=== PATIENT | female | born 1990 | race African-American/Black ===

== ENCOUNTER 2023-06-08 14:21 | Emergency (ER) | payer OTHER, SELFPAY ==
[2023-06-08 14:41] VITALS: BP 136/74; PULSE 91; RESP 16; TEMP 35.7; O2SAT 99
--- NOTE | 2023-06-08 15:26 | ED.URI ---
HPI - URI/Sore Throat General Chief Complaint: Upper Respiratory Infection Stated Complaint: chest congestion Time Seen by Provider: 06/08/23 15:18 Source: patient and RN notes reviewed Mode of arrival: ambulatory Limitations: no limitations History of Present Illness HPI Narrative: Patient presents today complaining of a 4 to five-day history of cough, chest congestion, fatigue. Denies any additional symptoms to include sore throat, nasal congestion, shortness of breath. Denies history of asthma or COPD. She has been drinking hot tea but taking no [id number] medication for symptoms prior to arrival. Son was recently diagnosed with strep throat. Related Data Allergies Allergy/AdvReac Type Severity Reaction Status Date / Time No Known Allergies Allergy Verified 06/08/23 14:59 Review of Systems Review of Systems: CONSTITUTIONAL: Denies body aches, fever, chills, or sweats.+ fatigue EYES: Denies visual changes, redness, or discharge. ENT: Denies rhinorrhea, congestion, sore throat, or otalgia. CARDIOVASCULAR: Denies chest pain, palpitations, or edema. RESPIRATORY: Denies dyspnea.+ cough, chest congestion GASTROINTESTINAL: Denies abdominal pain, nausea, vomiting, or diarrhea. GENITOURINARY: Denies dysuria or hematuria. SKIN: Denies rash, itching, or wounds. MUSCULOSKELETAL: Denies back pain, joint pain, or myalgia. NEUROLOGIC: Denies headache, numbness, tingling, or weakness. PSYCH: Denies depression or anxiety. PMFSH Comments At time of signature, I have reviewed and agree with nursing past medical, surgical, social and family history unless otherwise noted. Please see nursing chart for further information. There is no relevant family history pertinent to the presenting complaint Exam Narrative: GENERAL: Well-appearing, well-nourished, and in no acute distress. HEAD: Normocephalic, atraumatic. EYES: EOMI. No redness or drainage. Conjunctivae normal. ENT: Mucous membranes pink and moist. Nares clear. No rhinorrhea. TMs normal bilaterally. Throat normal. Uvula midline. NECK: Normal AROM. Supple. No lymphadenopathy. CHEST: No respiratory distress. Clear to auscultation. HEART: Regular rate and rhythm. No murmur appreciated. Normal peripheral pulses. EXTREMITIES: Normal range of motion. No edema. SKIN: Warm, dry, no rash. Capillary refill normal. Normal skin turgor. NEURO: No focal deficits. Alert and oriented x3. Gait steady. PSYCH: Normal affect. No signs of depression or anxiety. Course Course Level of Care: Express Care Visit Vital Signs Vital signs: Vital Signs Temperature 96.3 F L 06/08/23 14:41 Pulse Rate 91 06/08/23 14:41 Respiratory Rate 16 06/08/23 14:41 Blood Pressure 136/74 06/08/23 14:41 Pulse Oximetry 99 06/08/23 14:41 Oxygen Delivery Room Air 06/08/23 14:41 Temperature 96.3 F L 06/08/23 14:41 Pulse Rate 91 06/08/23 14:41 Respiratory Rate 16 06/08/23 14:41 Blood Pressure 136/74 06/08/23 14:41 Pulse Oximetry 99 06/08/23 14:41 Oxygen Delivery Room Air 06/08/23 14:41 Reviewed. Pt has been instructed to follow up with her PCP regarding her elevated blood pressure today. MDM - URI/Sore Throat MDM Narrative Medical decision making narrative: Rapid strep negative. Culture pending. Symptoms likely viral in etiology. Instructed patient to start Mucinex and stay hydrated. No prescription medications indicated at this time. Anticipatory guidance given. Differential Diagnosis Differential diagnosis: Likely upper respiratory infection, sinusitis, viral infection, bronchitis, pharyngitis and other (Strep throat) Lab Data Attestation: I reviewed the patient's lab results. Labs: Strep Screen Presumptive Negative *(Reference Range: Negative)* Critical Care Time Critical Care Time Critical Care Time: No Discharge Plan Discharge Clinical Impression: Upper respiratory inf
== END 2023-06-08 15:41 | disposition home or self-care (01) ==
PROVIDERS: Emergency Provider Nurse Practitioner; PCP Family Medicine Adolescent Medicine
DX: J06.9 Acute upper respiratory infection, unspecified (principal)
CPT/HCPCS: 87081; 87880; 99203; G0463

== ENCOUNTER 2023-08-01 09:11 | Outpatient (CLI) | payer BC, OTHER, SELFPAY ==
[2023-08-01 10:21] LABS: Basophils Absolute Auto 0.1 K/mm3 (0.0-0.1); Basophils Percent Auto 0.7 % (0.2-1.2); Eosinophils Absolute Auto 0.6 K/mm3 (0-0.3); Eosinophils Percent Auto 7.9 % (0-4.4); Hematocrit 39.4 % (37.0-47.0); Hemoglobin 12.8 g/dL (12.0-15.0); Immature Granulocyte Absolute 0.05 K/mm3 (0.00-0.031); Immature Granulocyte Percent A 0.7 % (0-0.5); Lymphocytes Absolute Auto 2.56 K/mm3 (0.9-3.2); Lymphocytes Percent Auto 36.7 % (18.3-44.2); Mean Corpuscular HGB Conc 32.5 g/dl (32-36); Mean Corpuscular Hemoglobin 28.1 pg (26-34); Mean Corpuscular Volume 86.4 fl (80-100); Mean Platelet Volume 11.9 fl (7.4-10.4); Monocytes Absolute Auto 0.4 K/mm3 (0.1-0.6); Monocytes Percent Auto 5.3 % (2.6-8.5); Neutrophils Absolute Auto 3.4 K/mm3 (1.3-6.7); Neutrophils Percent Auto 48.7 % (45.5-73.1); Platelet Count Result 270 k/mm3 (150-375); Red Blood Count 4.56 M/mm3 (4.2-5.4); Red Cell Distribution Width 13.1 % (11.5-14.5)
[2023-08-01 10:35] LABS: Alanine Aminotransferase 18 U/L (6-35); Albumin Level 4.8 g/dL (3.5-5.1); Alkaline Phosphatase 55 U/L (38-126); Anion Gap 8 mmol/L (8-16); Aspartate Amino Transferase 25 U/L (14-36); Bilirubin,Total 0.6 mg/dL (0.2-1.3); Blood Urea Nitrogen 9 mg/dL (7-17); Calcium 9.5 mg/dL (8.4-10.2); Carbon Dioxide 28 mmol/L (22-30); Chloride 102 mmol/L (98-107); Cholesterol 207 mg/dL (0-200); Estimated Glomerular Filt Rate > 60; Glucose 90 mg/dL (65-110); HDL Direct 44 mg/dL; Potassium 4.4 mmol/L (3.4-5.0); Sodium 138 mmol/L (137-145); Triglycerides 91 mg/dL (<150)
[2023-08-01 10:48] LABS: LDL Cholesterol Direct 123 mg/dL
[2023-08-01 10:59] LABS: Hemoglobin A1C 5.1 % (<5.7)
== END 2023-08-01 09:12 | disposition home or self-care (01) ==
PROVIDERS: PCP Nurse Practitioner Family; Visit Provider Nurse Practitioner Family
DX: E66.01 Morbid (severe) obesity due to excess calories (principal); Z13.0 Encounter for screening for diseases of the blood and blood-forming organs and certain disorders involving the immune mechanism; Z13.228 Encounter for screening for other metabolic disorders; Z13.220 Encounter for screening for lipoid disorders
CPT/HCPCS: 36415; 80053; 80061; 83036; 85025

== ENCOUNTER 2025-04-22 18:24 | Emergency (ER) | payer OTHER, BC, SELFPAY ==
--- OUTSIDE RECORDS SUMMARY | 2025-04-22 18:25 | XMS_ITS | Encounter Summary ---
Author Organization [facility] Facility Care Team Providers Care Bistro Server Name Role Phone Mansi Perez Primary Care Provider [phone] Encounter Details Date Type Department Care Team (Latest Contact Info) Description 11/06/2018 Orders Only [facility] CLINCONV ProviderRigo MD [address] [place] [address] Social History Tobacco Use Types Packs/Day Years Used Date Smoking Tobacco: Never Assessed Comments Unknown Sex and Gender Information Value Date Recorded Sex Assigned at Not on file Legal Sex Female 10:35 PM CROP PEST CONTROL SPECIALIST Gender Identity Not on file Sexual Orientation Not on file documented as of this encounter Plan of Treatment Not on file documented as of this encounter Procedures Procedure Name Priority Date/Time Associated Diagnosis Comments SCAN - LABS 11/06/2018 12:00 AM CROP PEST CONTROL SPECIALIST documented in this encounter Results * SCAN - LABS (11/06/2018 12:00 AM CROP PEST CONTROL SPECIALIST) Narrative 11/06/2018 12:00 AM CROP PEST CONTROL SPECIALIST Ordered by an unspecified provider. Historical Provider Final Res ult documented in this encounter Visit Diagnoses Not on filedocumented in this encounter Additional Health Concerns Infection Onset Date Last Indicated Resolved Time MRSA Comment:MRSA Isolation Fdc 01/27/25 09/12/2024 09/12/2024 01/27/2025 6:[address] documented as of this encounter Care Teams Bistro Server Relationship Specialty Start Date End Date Mansi Perez PA [address] [place] [address] PCP - General Internal Medicine 05/22/19 documented as of this encounter
--- OUTSIDE RECORDS SUMMARY | 2025-04-22 18:25 | XMS_ITS | Referral Summary ---
Author Organization [facility] Medical Office Building [facility] Address [address] [place] [address] Care Team Providers Care General Medical Practitioner Name Role Phone Mansi Perez Primary Care Provider [phone]- [phone] Allergies No known active allergies Medications No known medications Active Problems Problem Noted Date Diagnosed Date Annual physical exam 11/22/2019 Assessment & Plan (11/22/2019 10:02 PM COMPRESSED GAS PLANT WORKER): Encouraged healthy lifestyle, good nutrition and exercise. Encouraged Calcium and Vitamin D and weight bearing exercise for bone health. Reviewed immunizations Reviewed age appropirate screenings. Calculus of gallbladder with out cholecystitis without obstruction 11/11/2019 Assessment & Plan (11/22/2019 10:01 PM COMPRESSED GAS PLANT WORKER): This is a significant, separately identifiable problem that was evaluated and managed on the same day as the wellness exam Reviewed GB diet. Refer to Surgeon for further evaluation/discuss cholecystectomy. Morbid obesity with BMI of 50.0-59.9, adult 06/25 Assessment & Plan (11/11/2019 8:50 AM COMPRESSED GAS PLANT WORKER): Obesity is unchanged. Discussed the patient's BMI. The BMI is above average. BMI management plan is completed. BMI Follow-up includes: nutrition counseling, exercise counseling and education provided. Assessment & Plan (07/08/2019 8:51 AM CDT): Obesity is unchanged. Discussed the patient's BMI. The BMI is above average. BMI management plan is completed. BMI Follow-up includes: nutrition counseling, exercise counseling and education provided. Discussed weight management issues for approximately 15 minutes. Encouraged to log all food/drink/intake to determine daily caloric intake. Reviewed 3500 calories = 1# of weight so have to register a deficit to lose. Discussed obtaining this by decreasing daily caloric intake and or increasing exercise. Discussed decreasing carbs. Maintaining enough protein. Monitor/be aware of serving size. Increase water. Avoid sugar sweetened drinks. Other hemorrhoids 07/03/2019 Anxiety 07/03/2019 Assessment & Plan (11/22/2019 10:01 PM COMPRESSED GAS PLANT WORKER): Stable without medication Assessment & Plan (07/18/2019 11:57 PM CDT): Anxiety is much better controlled. She thinks some of it is related to her job change. Will remain off the Lexapro and continue to monitor. If her symptoms return she may call to restart. History of gonorrhea 07/03/2019 Overview (07/03/2019): [address] 07/03/2019 Overview (11/22/2019): Placed by Ana 01/2019--->01/2022 Assessment & Plan (11/22/2019 10:01 PM COMPRESSED GAS PLANT WORKER): Tolerating well Assessment & Plan (07/03/2019 5:25 PM CDT): Placed 02/16/2019 by JENNIFFER Perez Resolved Problems Problem Noted Date Diagnosed Date Resolved Date Cervical cancer screening 11/22/2019 Assessment & Plan (11/22/2019 10:02 PM COMPRESSED GAS PLANT WORKER): Pap obtained today Other fatigue 07/18/2019 11/22/2019 Assessment & Plan (07/18/2019 11:58 PM CDT): Probably multifactorial. Check labs and followup to re-evaluate Screening examination for ST D (sexually transmitted disease) 07/18/2019 11/08/2020 Assessment & Plan (11/22/2019 10:02 PM COMPRESSED GAS PLANT WORKER): Check Braden/Chla and Trich from pap Assessment & Plan (07/18/2019 11:58 PM CDT): Check labs/urine for STD screen Diabetes mellitus screening 07/18/2019 11/22/2019 Assessment & Plan (07/18/2019 11:57 PM CDT): Check labs Immunizations Immunization Administration Dates Next Due Influenza, Trivalent, IM (MDV) 10/09/2018 Influenza, Unspecified 09/23/2019 Rho (D) Immune Globulin 12/07/2015 Tdap 09/20/2015,08/25/2015 Social History Tobacco Use Types Packs/Day Years Used Date Smoking Tobacco: Never Smokeless Tobacco: Never Alcohol Use Standard Drinks/Week Comments Yes 0 (1 standard drink = 0.6 oz pur e alcohol) PHQ-2 Answer Date Recorded PHQ-2 Score 0 07/16/2019 Personal Safety Answer Date Recorded Have you ever been in or are you currently in a harmful physical or emotional relationship or is someone making you feel afraid or unsafe? 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 file Not on file Last Filed Vital Signs Vital Sign Reading Time Taken Comments Blood Pressure 136/63 09/12/2024 4:30 PM CDT Pulse 78 09/12/2024 4:30 PM CDT Temperature 36.7 C (98.1 F) 09/12/2024 11:05 AM CDT Respiratory Rate 20 09/12/2024 11:05 AM CDT Oxygen Saturation 100% 09/12/2024 4:30 PM CDT Inhaled Oxygen Concentration - - Weight 149.7 kg (330 lb) 09/12/2024 11:05 AM CDT Height 162.6 cm (5' 4) 09/12/2024 11:05 AM CDT Body Mass Index 56.64 09/12/2024 11:05 AM CDT Plan of Treatment Not on file Procedures Procedure Name Priority Date/Time Associated Diagnosis Comments HM PAP SMEAR WITH HPV Routine 11/11/2019 HEPATITIS PANEL, ACUTE Routine 07/14/2019 1:11 PM CDT Screening examination for STD (sexually transmitted disease) from Last 3 Months or Most Recently Relevant to Health Maintenance Results * PAP SMEAR WITH HPV (11/11/2019) Pap smear Normal Comment:Negative Pap and Neg ative HPV us Historical Provider MD HEALTH MAINTENANCE Final Result * Hepatitis panel, acute (07/14/2019 1:11 PM CDT) HepBsAg NONREACT NONREACTIVE [facility] Comment: Siemens CentaurXP using EMMY (chemiluminescent immunoassay) technology. NONREACTIVE: IgM antibodies to Hepatitis B Surface antigen not detected. REACTIVE: IgM antibodies to Hepatitis B Surface antigen detected. Reactive results will be confirmed by neutralization testing. HBsAb qn 33.60 mIU/mL [facility] Comment: Siemens CentaurXP using EMMY (chemiluminescent immunoassay) technology. 9.99 IU/L or less.....NONREACTIVE: IgM antibodies to Hepatitis B Surface antibody are not detected. 10.00 IU/L or greater..REACTIVE: IgM antibodies to Hepatitis B Surface antibody are detected. Hep B core IgM NONREACT NONREACTIVE [facility] Comment: Siemens CentaurXP using EMMY (chemiluminescent immunoassay) technology. NONREACTIVE: IgM antibodies to Hepatitis B Core antigen not detected. EQUIVOCAL: IgM antibodies to Hepatitis B Core antigen may or may not be present. Obtain a new specimen and retest. REACTIVE: IgM antibodies to Hepatitis B Core antigen detected. Hep A IgM NONREACT NONREACTIVE [facility] Comment: Siemens CentaurXP using EMMY (chemiluminescent immunoassay) technology. NONREACTIVE: IgM antibodies to Hepatitis A not detected. This does not exclude possibility of exposure to Hepatitis A or early acute infection. EQUIVOCAL:IgM antibodies to Hepatitis A may or may not be present. Suggest recollection and retest. REACTIVE: Antibodies to Hepatitis A detected. Hep C Ab NONREACT NONREACTIVE [facility] Comment: Siemens CentaurXP using EMMY (chemiluminescent immunoassay) technology. NONREACTIVE: Antibodies to Hepatitis C not detected. This does not exclude early acute Hepatitis C infection, possibility of exposure to Hepatitis C, antibodies below detection limit, or to lack of antibody reactivity to the antigen used in this assay. EQUIVOCAL: Antibodies to Hepatitis C may or may not be present. Sample to be confirmed by real-time PCR method. REACTIVE: Antibodies to Hepatitis C detected.Sample to be confirmed by real-time PCR method. Blood specimen (specimen) 07/14/2019 1:11 PM CDT 07/14/2019 1:16 PM CDT Narrative Resulting Agency Comment CLI Mansi [facility] - GENERAL ORDERABLES Final Result [id number] [place] [address], [facility] [phone] from Last 3 Months or Most Recently Relevant to Health Maintenance Insurance [employer] [facility] Address: [address] [address] Care Teams General Medical Practitioner Relationship Specialty Start Date End Date Mansi Perez PA [address] [place] [address] PCP - General Internal Medicine 05/22/19
--- OUTSIDE RECORDS SUMMARY | 2025-04-22 18:25 | XMS_ITS | Encounter Summary ---
Author Organization [facility] Facility Care Team Providers Care Continuous Improvement Engineer Name Role Phone Mansi Perez Primary Care Provider +1- [phone] Encounter Details Date Type Department Care Team (Latest Contact Info) Description 02/16/2019 Orders Only [facility] CLINCONV ProviderRigo MD [address] [place] [address] Social History Tobacco Use Types Packs/Day Years Used Date Smoking Tobacco: Never Assessed Comments Unknown Sex and Gender Information Value Date Recorded Sex Assigned at Not on file Legal Sex Female 10:35 PM AUTO TECHNICIAN MECHANIC Gender Identity Not on file Sexual Orientation Not on file documented as of this encounter Plan of Treatment Not on file documented as of this encounter Procedures Procedure Name Priority Date/Time Associated Diagnosis Comments PROCEDURE - RESULT 02/16/2019 12 :00 AM CDT documented in this encounter Results * PROCEDURE - RESULT (02/16/2019 12:00 AM CDT) Narrative 02/16/2019 12:00 AM CDT Ordered by an unspecified provider. Historical Provider Final Res ult documented in this encounter Visit Diagnoses Not on filedocumented in this encounter Additional Health Concerns Infection Onset Date Last Indicated Resolved Time MRSA Comment:MRSA Isolation Long Term 01/27/25 09/12/2024 09/12/2024 01/27/2025 6:[address] documented as of this encounter Care Teams Continuous Improvement Engineer Relationship Specialty Start Date End Date Mansi Perez PA [address] [place] [address] PCP - General Internal Medicine 05/22/19 documented as of this encounter
--- OUTSIDE RECORDS SUMMARY | 2025-04-22 18:25 | XMS_ITS | Clinical Summary ---
Author Organization [facility] Medical Office Building B Address [address] [place] [address] Care Team Providers Care Assistant To The Director Name Role Phone Mansi Perez Primary Care Provider +1- [phone] Allergies No known active allergies Medications No known medications Active Problems Problem Noted Date Diagnosed Date Annual physical exam 11/22/2019 Assessment & Plan (11/22/2019 10:02 PM CONSERVATION BIOLOGY PROFESSOR): Encouraged healthy lifestyle, good nutrition and exercise. Encouraged Calcium and Vitamin D and weight bearing exercise for bone health. Reviewed immunizations Reviewed age appropirate screenings. Calculus of gallbladder with out cholecystitis without obstruction 11/11/2019 Assessment & Plan (11/22/2019 10:01 PM CONSERVATION BIOLOGY PROFESSOR): This is a significant, separately identifiable problem that was evaluated and managed on the same day as the wellness exam Reviewed GB diet. Refer to Surgeon for further evaluation/discuss cholecystectomy. Morbid obesity with BMI of 50.0-59.9, adult 06/25 Assessment & Plan (11/11/2019 8:50 AM CONSERVATION BIOLOGY PROFESSOR): Obesity is unchanged. Discussed the patient's BMI. [...] 07/03/2019 Assessment & Plan (11/22/2019 10:01 PM CONSERVATION BIOLOGY PROFESSOR): Stable without medication Assessment & Plan (07/18/2019 [...] 01/2019--->01/2022 Assessment & Plan (11/22/2019 10:01 PM CONSERVATION BIOLOGY PROFESSOR): Tolerating well Assessment & Plan (07/03/2019 5:25 PM CDT): Placed 02/16/2019 by JENNIFFER Perez Resolved Problems Problem Noted Date Diagnosed Date Resolved Date Cervical cancer screening 11/22/2019 Assessment & Plan (11/22/2019 10:02 PM CONSERVATION BIOLOGY PROFESSOR): Pap obtained today Other fatigue 07/18/2019 11/22/2019 Assessment & Plan (07/18/2019 11:58 PM CDT): Probably multifactorial. Check labs and followup to re-evaluate Screening examination for ST D (sexually transmitted disease) 07/18/2019 11/08/2020 Assessment & Plan (11/22/2019 10:02 PM CONSERVATION BIOLOGY PROFESSOR): Check Braden/Chla and Trich from pap Assessment & Plan (07/18/2019 11:58 PM CDT): Check labs/urine for STD screen Diabetes mellitus screening 07/18/2019 11/22/2019 Assessment & Plan (07/18/2019 11:57 PM CDT): Check labs Immunizations Immunization Administration Dates Next Due Influenza, Trivalent, IM (MDV) 10/09/2018 Influenza, Unspecified 09/23/2019 Rho (D) Immune Globulin 12/07/2015 Tdap 09/20/2015,08/25/2015 Surgical History Surgery Date Site/Laterality Comments SECTION Family History Medical History Relation Name Comments Alcohol abuse Father Anxiety disorder Mother Asthma Mother Depression Mother Relation Name Status Comments Father Mother Social History Tobacco Use Types Packs/Day Years [...] on file Legal Sex Female 10:35 PM CONSERVATION BIOLOGY PROFESSOR Gender Identity Not on file Sexual Orientation Not on file 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 file Not on file Obstetrics History Last Filed Vital Signs Vital Sign Reading [...] 09/12/2024 11:05 AM CDT Plan of Treatment Health Maintenance Due Date Last Done Comments Varicella Vaccines (1 of 2 - 13+ 2-dose series) 2004 Depression Screening 07/08/2020 07/08/2019 Cervical Cancer Screening 11/11/2020 11/11/2019 Regular Well Visit/Exam 18-64 11/11/2020 11/11/2019, 09/02/2018 Influenza Vaccine (Season Ended) 2025 09/23/2019, 10/09/2018 DTaP/Tdap/Td Vaccine (3 - Td or Tdap) 09/20/2025 09/20/2015, 08/25/2015, 05/03/2014, Additional history exists HPV Vaccines Completed 10/12/2014, 05/25, 04/04/2012 Hepatitis C Screening Completed 07/14/2019 , 02/06/2019, 11/11/2018, Additional history exists Hepatitis B Screening Completed 08/02/2022, 002 Pneumococcal vaccine <65 Aged Out No longer eligible based on patient's age to complete this topic Procedures Procedure Name Priority Date/Time Associated Diagnosis Comments PAP SMEAR WITH HPV Routine 11/11/2019 HEPATITIS PANEL, ACUTE Routine 07/14/2019 1:11 PM CDT Screening examination for STD (sexually transmitted disease) from Last 3 Months or Most Recently Relevant to Health Maintenance Results * PAP SMEAR WITH HPV (11/11/2019) Pap smear Normal Comment:Negative Pap and Neg ative HPV Historical Provider HEALTH MAINTENANCE Final Result * Hepatitis panel, acute (07/14/2019 1:11 PM CDT) HepBsAg NONREACT NONREACTIVE [facility] Comment: Siemens Ineda SystemsaurXP using EMMY (chemiluminescent immunoassay) technology. NONREACTIVE: IgM antibodies to Hepatitis B Surface antigen not detected. REACTIVE: IgM antibodies to Hepatitis B Surface antigen detected. Reactive results will be confirmed by neutralization testing. HBsAb qn 33.60 mIU/mL [facility] Comment: Siemens CentaurXP using EMMY (chemiluminescent immunoassay) technology. 9.99 IU/L or less.....NONREACTIVE: IgM antibodies to Hepatitis B Surface antibody are not detected. 10.00 IU/L or greater..REACTIVE: IgM antibodies to Hepatitis B Surface antibody are detected. Hep B core IgM NONREACT NONREACTIVE [facility] Comment: Siemens CentaurXP using EMMY (chemiluminescent immunoassay) technology. NONREACTIVE: IgM antibodies to Hepatitis B Core antigen not detected. EQUIVOCAL: IgM antibodies to Hepatitis B Core antigen may or may not be present. Obtain a new specimen and retest. REACTIVE: IgM antibodies to Hepatitis B Core antigen detected. Hep A IgM NONREACT NONREACTIVE [facility] Comment: Siemens CentaurXP using EMMY (chemiluminescent immunoassay) technology. NONREACTIVE: IgM antibodies to Hepatitis A not detected. This does not exclude possibility of exposure to Hepatitis A or early acute infection. EQUIVOCAL:IgM antibodies to Hepatitis A may or may not be present. Suggest recollection and retest. REACTIVE: Antibodies to Hepatitis A detected. Hep C Ab NONREACT NONREACTIVE [facility] Comment: Siemens CentaurXP using EMMY [...] PM CDT Narrative Resulting Agency Comment CLI us Mansi MILLER [facility] MICROBIOLOGY - GENERAL ORDERABLES Final Result [facility] [address] [place] [address], [facility] [phone] from Last 3 Months or Most Recently Relevant to Health Maintenance Insurance IDPA IDPA [facility] Care Teams Assistant To The Director Relationship Specialty Start Date End Date Mansi Perez PA [address] [place] [address] PCP - General Internal Medicine 05/22/19
--- OUTSIDE RECORDS SUMMARY | 2025-04-22 18:25 | XMS_ITS | Clinical Summary ---
Author Organization [facility] Address [address] [place] [address] Care Team Providers Care Bill Of Materials Clerk Name Role Phone Unavailable Primary Care Provider Unavailabl e Source Comments [facility],non-owned Affiliates and Associated Physician Practices is amultiple site organization consisting of ambulatory clinics and hospital sitesin [place], [place], [place] and [place]. This disclosure is being madepursuant to the Care Everywhere program and may not contain all information available regarding this patient. Last updated 18.[facility] Allergies No known active allergies Medications * Be aware that medications may not be up to date on this document. Alwaysverify current medications with the patient. Vit-Fe Fumarate-FA ( VITAMIN) 28-0.8 MG tablet Take 1 Tab by mouth once daily Active oxyCODONE-aceta minophen (PERCOCET) 5-325 MG tablet Take 1-2 Tabs by mouth every 4 hours as needed 40 Tab 0 6 Active docusate sodium (COLACE) 100 MG capsule Take 1 Cap by mouth 2 times daily 60 Cap 0 6 Active ferrous sulfate 325 (65 FE) MG tablet Take 1 Tab by mouth daily with breakfast 60 Tab 0 6 Active Active Problems Problem Noted Date Diagnosed Date Obesity, Class III, BMI 40-49.9 (morbid obesity) 12/05/2015 Rh negative status during 12/05/2015 Overview (12/05/2015): Rhogam given 09/08 Susceptible to varicella (non-immune), currently 12/05/2015 Anemia 12/05/2015 Overview (12/05/2015): During pregnency, did not take iron supplement. Did take vitamin. 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 NIPT performed and was low risk. Depression 12/05/2015 Overview (12/05/2015): H/O depression for long time as child. Took rx meds as a kid. Mood stable throughout and not on meds currently. Counseled about post- depression risk during care, prefers to observe for now and not start meds as mood stable. History of asthma 12/05/2015 Overview (12/05/2015): Currently asymptomatic, not on meds. Pre-diabetes 12/23/2014 Overview (12/05/2015): Noted in history. GCT 98 during History of trichomoniasis 01/10/2014 Overview (12/05/2015): Noted with pap in 2013. Also noted in 2011. No trich in . care following delivery S/P RhD negative Resolved Problems Problem Noted Date Diagnosed Date Resolved Date E. coli UTI 06/02/2015 12/19/2015 Overview (12/05/2015): E. Coli culture, started on Macrobid and switched to ampicillin per sensitivities. Immunizations Immunization Administration Dates Next Due Rho D Immune Globulin 12/07/2015 TDAP (7yrs+) 09/20/2015 Social History Tobacco Use Types Packs/Day Years Used Date Smoking Tobacco: Never Smokeless Tobacco: Never Alcohol Use Standard Drinks/Week Comments No 0 (1 standard drink = 0.6 oz pur e alcohol) Comments No Sex and Gender Information Value Date Recorded Sex Assigned at Not on file Legal Sex Female 5:35 AM ELECTRICAL ENGINEER Gender Identity Not on file Sexual Orientation Not on file Last Filed Vital Signs Vital Sign Reading Time Taken Comments Blood Pressure 143/69 03/14/2016 6:10 PM CDT Pulse 84 03/14/2016 6:10 PM CDT Temperature 36.4 C (97.6 F) 03/14/2016 6:31 PM CDT Respiratory Rate 29 03/14/2016 6:10 PM CDT Oxygen Saturation 99% 03/14/2016 6:10 PM CDT Inhaled Oxygen Concentration - - Weight 122.5 kg (270 lb) 03/14/2016 6:31 PM CDT Height 162.6 cm (5' 4) 03/14/2016 6:31 PM CDT Body Mass Index 46.35 03/14/2016 6:31 PM CDT Plan of Treatment Health Maintenance Due Date Last Done Comments PAP SMEAR 1991 HEPATITIS B VACCINE (1 of 3 - 19+ 3-dose series) 2010 COVID-19 VACCINE ( season) 2024 10/21/2023, 01/30/2021 DEPRESSION SCREENING 11/25/2024 INFLUENZA VACCINE (Season Ended) 2025 11/01/2021, 09/23/2019 DTAP/TDAP/TD VACCINES (2 - Td or Tdap) 09/20/2025 09/20/2015 ZOSTER VACCINE (1 of 2) 2041 HEPATITIS C SCREENING Completed 10/12/2014 HIV SCREENING Completed 05/12/2015, 11/26, 10/12/2014, Additional history exists HIB VACCINE Aged Out No longer eligi ble based on patient's age to complete this topic HPV VACCINE Aged Out No longer eligi ble based on patient's age to complete this topic MENINGOCOCCAL (Group B) VACCINE SHARED DECISION-MAKING Aged Out No longer eligible based on patient's age to complete this topic MENINGOCOCCAL GROUPS A/C/Y/W VACCINE Aged Out No longer eligible based on patient's age to complete this topic PNEUMOCOCCAL VACCINE Aged Out No long er eligible based on patient's age to complete this topic Procedures Procedure Name Priority Date/Time Associated Diagnosis Comments HIV-1 HIV-2 ANTIGEN/ANTIBODY Routine 05/12/2015 3:54 PM CDT HEPATITIS C ANTIBODY Routine 10/12/2014 1:29 PM ELECTRICAL ENGINEER from Last 3 Months or Most Recently Relevant to Health Maintenance Results * HIV-1 HIV-2 ANTIGEN/ANTIBODY (05/12/2015 3:54 PM CDT) HIV Antigen/Antibody 4th Generation NON-REACT HELADIO NON-REACT HELADIO [facility] ([facility]) Comment: A Nonreactive HIV Ag/Ab result does not exclude HIV infection since the time frame for seroconversion is variable. If acute HIV infection is suspected, a HIV-1 RNA Qualitative TMA test is recommended. PLEASE NOTE: This information has been disclosed to you from records whose confidentiality may be protected by state law. If your state requires such protection, then the state law prohibits you from making any further disclosure of the information without the specific written consent of the person to whom it pertains, or as otherwise permitted by law. A general authorization for the release of medical or other information is NOT sufficient for this purpose. The performance of this assay has not been clinically validated in patients less than 2 years old. For additional information please refer to http://education.Cherrish/faq/JSA172 (This link is being provided for informational/ educational purposes only.) Test Performed at: [facility] [id number] BEENA PRIETO DO,MPH 05/12/2015 3:54 PM CDT 05/12/2015 3:55 PM CDT us Historical Provider LAB - HEMATOLOGY ORDERABL ES Edited Result - Final [facility] ([facility]) [id number] * HEPATITIS C ANTIBODY (10/12/2014 1:29 PM ELECTRICAL ENGINEER) Hepatitis C Antibody NON-REACTI VE NON-REACT HEL[facility] ([facility]) Signal/Cutoff 0.08 <1.00 [facility] ([facility]) Comment: Test Performed at: [facility] [id number] [employer] [place] [id number] BEENA PRIETO DO,MPH Blood specimen (specimen) BLOOD SPECIMEN / Unknown 10/12/2014 1:29 PM ELECTRICAL ENGINEER 10/12/2014 1:30 PM ELECTRICAL ENGINEER us Nat Arana MD LAB - CHEMISTRY ORDERABLES Edited Result - Final [facility] W) [id number] from Last 3 Months or Most Recently Relevant to Health Maintenance Advance Directives * Full Code (Latest Code Status on File) Date Activated Date Inactivated Comments 12/06/2015 1:00 AM 12/08/2015 3:37 PM * Full Code Date Activated Date Inactivated Comments 12/05/2015 8:18 PM 12/06/2015 1:00 AM
[2025-04-22 18:32] VITALS: BP 144/94; PULSE 77; RESP 20; TEMP 35.7; O2SAT 100
[2025-04-22 20:30] VITALS: BP 116/68; PULSE 72; RESP 16; TEMP 37.1; O2SAT 100
--- OUTSIDE RECORDS SUMMARY | 2025-04-22 22:10 | XMS_ITS | Clinical Summary ---
Author Organization [facility] Medical Office Building B Address [address] [place] [address] Care Team Providers Care Reefer Truck Driver Name Role Phone Mansi Perez Primary Care Provider +1- [phone] Allergies No known active allergies Medications No known medications Active Problems Problem Noted Date Diagnosed Date Annual physical exam 11/22/2019 Assessment & Plan (11/22/2019 10:02 PM BLACKSMITH SUPERVISOR): Encouraged healthy lifestyle, good nutrition and exercise. Encouraged Calcium and Vitamin D and weight bearing exercise for bone health. Reviewed immunizations Reviewed age appropirate screenings. Calculus of gallbladder with out cholecystitis without obstruction 11/11/2019 Assessment & Plan (11/22/2019 10:01 PM BLACKSMITH SUPERVISOR): This is a significant, separately identifiable problem that was evaluated and managed on the same day as the wellness exam Reviewed GB diet. Refer to Surgeon for further evaluation/discuss cholecystectomy. Morbid obesity with BMI of 50.0-59.9, adult 06/25 Assessment & Plan (11/11/2019 8:50 AM BLACKSMITH SUPERVISOR): Obesity is unchanged. Discussed the patient's BMI. [...] 07/03/2019 Assessment & Plan (11/22/2019 10:01 PM BLACKSMITH SUPERVISOR): Stable without medication Assessment & Plan (07/18/2019 [...] 01/2019--->01/2022 Assessment & Plan (11/22/2019 10:01 PM BLACKSMITH SUPERVISOR): Tolerating well Assessment & Plan (07/03/2019 5:25 PM CDT): Placed 02/16/2019 by JENNIFFER Perez Resolved Problems Problem Noted Date Diagnosed Date Resolved Date Cervical cancer screening 11/22/2019 Assessment & Plan (11/22/2019 10:02 PM BLACKSMITH SUPERVISOR): Pap obtained today Other fatigue 07/18/2019 11/22/2019 Assessment & Plan (07/18/2019 11:58 PM CDT): Probably multifactorial. Check labs and followup to re-evaluate Screening examination for ST D (sexually transmitted disease) 07/18/2019 11/08/2020 Assessment & Plan (11/22/2019 10:02 PM BLACKSMITH SUPERVISOR): Check Braden/Chla and Trich from pap Assessment [...] on file Legal Sex Female 10:35 PM BLACKSMITH SUPERVISOR Gender Identity Not on file Sexual Orientation [...] (07/14/2019 1:11 PM CDT) HepBsAg NONREACT NONREACTIVE [facility] Comment: Siemens [employer]ster TVaurXP using EMMY (chemiluminescent immunoassay) technology. NONREACTIVE: IgM antibodies to Hepatitis B Surface antigen not detected. REACTIVE: IgM antibodies to Hepatitis B Surface antigen detected. Reactive results will be confirmed by neutralization testing. HBsAb qn 33.60 mIU/mL [facility] Comment: Siemens CentaurXP using EMMY (chemiluminescent immunoassay) technology. 9.99 IU/L or less.....NONREACTIVE: IgM antibodies to Hepatitis B Surface antibody are not detected. 10.00 IU/L or greater..REACTIVE: IgM antibodies to Hepatitis B Surface antibody are detected. Hep B core IgM NONREACT NONREACTIVE [facility] Comment: Siemens CentaurXP using EMMY (chemiluminescent immunoassay) technology. NONREACTIVE: IgM antibodies to Hepatitis B Core antigen not detected. EQUIVOCAL: IgM antibodies to Hepatitis B Core antigen may or may not be present. Obtain a new specimen and retest. REACTIVE: IgM antibodies to Hepatitis B Core antigen detected. Hep A IgM NONREACT NONREACTIVE [facility] Comment: Siemens CentaurXP using EMMY (chemiluminescent immunoassay) technology. NONREACTIVE: IgM antibodies to Hepatitis A not detected. This does not exclude possibility of exposure to Hepatitis A or early acute infection. EQUIVOCAL:IgM antibodies to Hepatitis A may or may not be present. Suggest recollection and retest. REACTIVE: Antibodies to Hepatitis A detected. Hep C Ab NONREACT NONREACTIVE [facility] Comment: Siemens CentaurXP using EMMY (chemiluminescent immunoassay) [...] LAB MICROBIOLOGY - GENERAL ORDERABLES Final Result [facility] [address] [place] [address], [facility] [phone] from Last 3 Months or Most Recently Relevant to Health Maintenance Insurance IDPA IDPA [facility] HMO/PPO Address: [address] [address] [place] [address] Care Teams Reefer Truck Driver Relationship Specialty Start Date End Date Mansi Perez PA [address] [place] [address] PCP - General Internal Medicine 05/22/19
--- OUTSIDE RECORDS SUMMARY | 2025-04-22 22:10 | XMS_ITS | Encounter Summary ---
Author Organization [facility] Care Team Providers Care Arc Cutter Plasma Arc Name Role Phone Mansi Perez Primary Care Provider +1- [phone] Encounter Details Date Type Department Care Team (Latest Contact Info) Description 11/06/2018 Orders Only [facility] CLINCONV ProviderRigo MD [address] [place] [address] Social History Tobacco Use Types Packs/Day Years Used Date Smoking Tobacco: Never Assessed Comments Unknown Sex and Gender Information Value Date Recorded Sex Assigned at Not on file Legal Sex Female 10:35 PM CLASSIFIED AD CLERK Gender Identity Not on file Sexual Orientation Not on file documented as of this encounter Plan of Treatment Not on file documented as of this encounter Procedures Procedure Name Priority Date/Time Associated Diagnosis Comments SCAN - LABS 11/06/2018 12:00 AM CLASSIFIED AD CLERK documented in this encounter Results * SCAN - LABS (11/06/2018 12:00 AM CLASSIFIED AD CLERK) Narrative 11/06/2018 12:00 AM CLASSIFIED AD CLERK Ordered by an unspecified provider. Historical Provider Final Res ult documented in this encounter Visit Diagnoses Not on filedocumented in this encounter Additional Health Concerns Infection Onset Date Last Indicated Resolved Time MRSA Comment:MRSA Isolation Intermediate 01/27/25 09/12/2024 09/12/2024 01/27/2025 6:[address] documented as of this encounter Care Teams Arc Cutter Plasma Arc Relationship Specialty Start Date End Date Mansi Perez PA [address] [place] [address] PCP - General Internal Medicine 05/22/19 documented as of this encounter
--- OUTSIDE RECORDS SUMMARY | 2025-04-22 22:10 | XMS_ITS | Clinical Summary ---
Author Organization [email or web address] Address [address] [place] [address] Care Team Providers Care Wellness Consultant Name Role Phone Unavailable Primary Care Provider Unavailabl e Source Comments [email or web address],non-owned Affiliates and Associated Physician Practices is amultiple site organization consisting of ambulatory clinics and hospital sitesin [place], [place], [place] and [place]. This disclosure is being madepursuant to the Care Everywhere program and may not contain all information available regarding this patient. Last updated 18.[email or web address] Allergies No known active allergies Medications * [...] on file Legal Sex Female 5:35 AM PR INTERNSHIP Gender Identity Not on file Sexual Orientation [...] HEPATITIS C ANTIBODY Routine 10/12/2014 1:29 PM PR INTERNSHIP from Last 3 Months or Most Recently [...] old. For additional information please refer to http://education.WhatSalon/faq/NPN511 (This link is being provided for informational/ educational purposes only.) Test Performed [place]: [place] [id number] BEENA PRIETO DO,MPH 05/12/2015 3:54 PM CDT 05/12/2015 3:55 PM CDT us Historical Provider LAB - HEMATOLOGY ORDERABL ES Edited Result - Final [facility] ([facility]) [id number] * HEPATITIS C ANTIBODY (10/12/2014 1:29 PM PR INTERNSHIP) Hepatitis C Antibody NON-REACTI VE NON-REACT HELADIO [facility] ([facility]) Signal/Cutoff 0.08 <1.00 [facility] ([facility]) Comment: Test Performed at: [facility] [id number] [employer] [employer] [id number] BEENA PRIETO DO,MPH Blood specimen (specimen) BLOOD SPECIMEN / Unknown 10/12/2014 1:29 PM PR [employer]IP 10/12/2014 1:30 PM PR INTER[employer]IP us Nat Arana MD LAB - CHEMISTRY ORDERABLES Edited Result - Final [facility] R) [id number] from Last 3 Months or Most Recently Relevant to Health Maintenance Advance Directives * Full Code (Latest Code Status on File) Date Activated Date Inactivated Comments 12/06/2015 1:00 AM 12/08/2015 3:37 PM * Full Code Date Activated Date Inactivated Comments 12/05/2015 8:18 PM 12/06/2015 1:00 AM
--- OUTSIDE RECORDS SUMMARY | 2025-04-22 22:10 | XMS_ITS | Encounter Summary ---
Author Organization [facility] Facility Care Team Providers Care Advertising Vice President Name Role Phone Mansi Perez Primary Care Provider +1- [phone] Encounter Details Date Type Department Care Team (Latest Contact Info) Description 02/16/2019 Orders Only [facility] CLINCONV ProviderRigo MD [address] [place] [address] Social History Tobacco Use Types Packs/Day Years Used Date Smoking Tobacco: Never Assessed Comments Unknown Sex and Gender Information Value Date Recorded Sex Assigned at Not on file Legal Sex Female 10:35 PM GASOLINE SERVICE ATTENDANT Gender Identity Not on file Sexual Orientation [...] Last Indicated Resolved Time MRSA Comment:MRSA Isolation Assisted 01/27/25 09/12/2024 09/12/2024 01/27/2025 6:[address] documented as of this encounter Care Teams Advertising Vice President Relationship Specialty Start Date End Date Mansi Perez PA [address] [place] [address] PCP - General Internal Medicine 05/22/19 documented as of this encounter
--- OUTSIDE RECORDS SUMMARY | 2025-04-22 22:10 | XMS_ITS | Referral Summary ---
Author Organization [facility] Medical Office Building B Address [address] [place] [address] Care Team Providers Care Clinical Data Management Director Name Role Phone Mansi Perez Primary Care Provider +1- [phone] Allergies No known active allergies Medications No known medications Active Problems Problem Noted Date Diagnosed Date Annual physical exam 11/22/2019 Assessment & Plan (11/22/2019 10:02 PM CLINICAL INFORMATICS MANAGER): Encouraged healthy lifestyle, good nutrition and exercise. Encouraged Calcium and Vitamin D and weight bearing exercise for bone health. Reviewed immunizations Reviewed age appropirate screenings. Calculus of gallbladder with out cholecystitis without obstruction 11/11/2019 Assessment & Plan (11/22/2019 10:01 PM CLINICAL INFORMATICS MANAGER): This is a significant, separately identifiable problem that was evaluated and managed on the same day as the wellness exam Reviewed GB diet. Refer to Surgeon for further evaluation/discuss cholecystectomy. Morbid obesity with BMI of 50.0-59.9, adult 06/25 Assessment & Plan (11/11/2019 8:50 AM CLINICAL INFORMATICS MANAGER): Obesity is unchanged. Discussed the patient's BMI. [...] 07/03/2019 Assessment & Plan (11/22/2019 10:01 PM CLINICAL INFORMATICS MANAGER): Stable without medication Assessment & Plan (07/18/2019 [...] 01/2019--->01/2022 Assessment & Plan (11/22/2019 10:01 PM CLINICAL INFORMATICS MANAGER): Tolerating well Assessment & Plan (07/03/2019 5:25 PM CDT): Placed 02/16/2019 by JENNIFFER Perez Resolved Problems Problem Noted Date Diagnosed Date Resolved Date Cervical cancer screening 11/22/2019 Assessment & Plan (11/22/2019 10:02 PM CLINICAL INFORMATICS MANAGER): Pap obtained today Other fatigue 07/18/2019 11/22/2019 Assessment & Plan (07/18/2019 11:58 PM CDT): Probably multifactorial. Check labs and followup to re-evaluate Screening examination for ST D (sexually transmitted disease) 07/18/2019 11/08/2020 Assessment & Plan (11/22/2019 10:02 PM CLINICAL INFORMATICS MANAGER): Check Braden/Chla and Trich from pap Assessment [...] on file Legal Sex Female 10:35 PM CLINICAL INFORMATICS MANAGER Gender Identity Not on file Sexual Orientation [...] (07/14/2019 1:11 PM CDT) HepBsAg NONREACT NONREACTIVE [facility] Comment: Siemens CentaurXP using EMMY (chemiluminescent immunoassay) technology. NONREACTIVE: IgM antibodies to Hepatitis B Surface antigen not detected. REACTIVE: IgM antibodies to Hepatitis B Surface antigen detected. Reactive results will be confirmed by neutralization testing. HBsAb qn 33.60 mIU/mL [facility] Comment: Siemens CentaurXP using EMMY (chemiluminescent immunoassay) technology. 9.99 IU/L or less.....NONREACTIVE: IgM antibodies to Hepatitis B Surface antibody are not detected. 10.00 IU/L or greater..REACTIVE: IgM antibodies to Hepatitis B Surface antibody are detected. Hep B core IgM NONREACT NONREACTIVE [facility] Comment: Siemens CentaurXP using EMMY (chemiluminescent immunoassay) technology. NONREACTIVE: IgM antibodies to Hepatitis B Core antigen not detected. EQUIVOCAL: IgM antibodies to Hepatitis B Core antigen may or may not be present. Obtain a new specimen and retest. REACTIVE: IgM antibodies to Hepatitis B Core antigen detected. Hep A IgM NONREACT NONREACTIVE [facility] Comment: Siemens CentaurXP using EMMY (chemiluminescent immunoassay) technology. NONREACTIVE: IgM antibodies to Hepatitis A not detected. This does not exclude possibility of exposure to Hepatitis A or early acute infection. EQUIVOCAL:IgM antibodies to Hepatitis A may or may not be present. Suggest recollection and retest. REACTIVE: Antibodies to Hepatitis A detected. Hep C Ab NONREACT NONREACTIVE [facility] Comment: Siemens CentaurXP using EMMY (chemiluminescent immunoassay) [...] LAB MICROBIOLOGY - GENERAL ORDERABLES Final Result [id number] [place] [address], [facility] [phone] from Last 3 Months or Most Recently Relevant to Health Maintenance Insurance Urlist HymitePA R [facility] H[facility]/PPO Address: [address] [address] Care Teams Clinical Data Management Director Relationship Specialty Start Date End Date Mansi Perez PA [address] [place] [address] PCP - General Internal Medicine 05/22/19
== END 2025-04-22 20:06 | disposition left against medical advice (07) ==
LOC: ANHED 22:09
PROVIDERS: PCP Nurse Practitioner Family
DX: M54.2 Cervicalgia (principal)
CPT/HCPCS: 99199

== ENCOUNTER 2025-04-23 09:53 | Emergency (ER) | payer OTHER, BC, SELFPAY ==
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
--- NOTE | ~2025-04-23 | CT_ITS ---
History: Bilateral lower extremity paresthesias and subjective slurred speech PROCEDURE: CT cervical spine without intravenous contrast. COMPARISON: None TECHNIQUE: Multiple contiguous axial images of the cervical spine were performed without the administration of i ntravenous contrast. DLP: mGy-cm FINDINGS: Straightening of the normal curvature of the cervical spine is identified, likely muscular in origin. No acute fractures are present. The bilateral lung apices are unremarkable. No soft tissue abnormality is present. The airway is patent. Impression: Straightening of the normal curvature of the cervical spine, likely muscular in origin. No acute fracture. Reviewed, dictated and finalized at location A. Impression: Straightening of the normal curvature of the cervical spine, likely muscular in origin. No acute fracture.
[2025-04-23 10:01] VITALS: BP 130/65; PULSE 84; RESP 16; TEMP 36.6; O2SAT 100
--- OUTSIDE RECORDS SUMMARY | 2025-04-23 10:05 | XMS_ITS | Clinical Summary ---
Author Organization [facility] Address [address] [place] [address] Care Team Providers Care Shoes Salesperson Name Role Phone Unavailable Primary Care Provider Unavailabl e Source Comments [facility],non-owned Affiliates and Associated Physician Practices is amultiple site organization consisting of ambulatory clinics and hospital sitesin [place], [place], [place] and [place]. This disclosure is being madepursuant to the Care Everywhere program and may not contain all information available regarding this patient. Last updated 18.[facility] Allergies No known active allergies Medications * [...] on file Legal Sex Female 5:35 AM RN DOCUMENTATION Gender Identity Not on file Sexual Orientation [...] HEPATITIS C ANTIBODY Routine 10/12/2014 1:29 PM RN DOCUMENTATION from Last 3 Months or Most Recently [...] old. For additional information please refer to http://education.[employer]/faq/LPS400 (This link is being provided for informational/ educational purposes only.) Test Performed at: [place] [id number] BEENA PRIETO DO,MPH 05/12/2015 3:54 PM CDT 05/12/2015 3:55 PM CDT us Historical Provider LAB - HEMATOLOGY ORDERABL ES Edited Result - Final [facility] (U) [id number] * HEPATITIS C ANTIBODY (10/12/2014 1:29 PM RN DOCUMENTATION) Hepatitis C Antibody NON-REACTI VE NON-REACT HELADIO [facility] ([facility]) Signal/Cutoff 0.08 <1.00 [facility] ([facility]) Comment: Test Performed at: [facility] [id number] [address] [employer] [place] [id number] BEENA PRIETO DO,MPH Blood specimen (specimen) BLOOD SPECIMEN / Unknown 10/12/2014 1:29 PM RN DOCUMENTATION 10/12/2014 1:30 PM RN DOCUMENTATION us Nat Arana MD LAB - CHEMISTRY ORDERABLES Edited Result - Final [facility] C) [id number] from Last 3 Months or Most Recently Relevant to Health Maintenance Advance Directives * Full Code (Latest Code Status on File) Date Activated Date Inactivated Comments 12/06/2015 1:00 AM 12/08/2015 3:37 PM * Full Code Date Activated Date Inactivated Comments 12/05/2015 8:18 PM 12/06/2015 1:00 AM
--- OUTSIDE RECORDS SUMMARY | 2025-04-23 10:05 | XMS_ITS | Encounter Summary ---
Author Organization [facility] Care Team Providers Care Senior Private Client Advisor Name Role Phone Mansi Perez Primary Care Provider +1- [phone] Encounter Details Date Type Department Care Team (Latest Contact Info) Description 02/16/2019 Orders Only [facility] CLINCONV ProviderRigo MD [address] [place] [address] Social History Tobacco Use Types Packs/Day Years Used Date Smoking Tobacco: Never Assessed Comments Unknown Sex and Gender Information Value Date Recorded Sex Assigned at Not on file Legal Sex Female 10:35 PM TINNER HELPER Gender Identity Not on file Sexual Orientation [...] Last Indicated Resolved Time MRSA Comment:MRSA Isolation Snf 01/27/25 09/12/2024 09/12/2024 01/27/2025 6:[address] documented as of this encounter Care Teams Senior Private Client Advisor Relationship Specialty Start Date End Date Mansi Perez PA [address] [place] [address] PCP - General Internal Medicine 05/22/19 documented as of this encounter
--- OUTSIDE RECORDS SUMMARY | 2025-04-23 10:05 | XMS_ITS | Referral Summary ---
Author Organization [facility] Medical Office Building B Address [address] [place] [address] Care Team Providers Care Special Agent Group Insurance Name Role Phone Mansi Perez Primary Care Provider +1- [phone] Allergies No known active allergies Medications No known medications Active Problems Problem Noted Date Diagnosed Date Annual physical exam 11/22/2019 Assessment & Plan (11/22/2019 10:02 PM FERMENTING CELLARS RECEIVER): Encouraged healthy lifestyle, good nutrition and exercise. Encouraged Calcium and Vitamin D and weight bearing exercise for bone health. Reviewed immunizations Reviewed age appropirate screenings. Calculus of gallbladder with out cholecystitis without obstruction 11/11/2019 Assessment & Plan (11/22/2019 10:01 PM FERMENTING CELLARS RECEIVER): This is a significant, separately identifiable problem that was evaluated and managed on the same day as the wellness exam Reviewed GB diet. Refer to Surgeon for further evaluation/discuss cholecystectomy. Morbid obesity with BMI of 50.0-59.9, adult 06/25 Assessment & Plan (11/11/2019 8:50 AM FERMENTING CELLARS RECEIVER): Obesity is unchanged. Discussed the patient's BMI. [...] 07/03/2019 Assessment & Plan (11/22/2019 10:01 PM FERMENTING CELLARS RECEIVER): Stable without medication Assessment & Plan (07/18/2019 [...] 01/2019--->01/2022 Assessment & Plan (11/22/2019 10:01 PM FERMENTING CELLARS RECEIVER): Tolerating well Assessment & Plan (07/03/2019 5:25 PM CDT): Placed 02/16/2019 by JENNIFFER Perez Resolved Problems Problem Noted Date Diagnosed Date Resolved Date Cervical cancer screening 11/22/2019 Assessment & Plan (11/22/2019 10:02 PM FERMENTING CELLARS RECEIVER): Pap obtained today Other fatigue 07/18/2019 11/22/2019 Assessment & Plan (07/18/2019 11:58 PM CDT): Probably multifactorial. Check labs and followup to re-evaluate Screening examination for ST D (sexually transmitted disease) 07/18/2019 11/08/2020 Assessment & Plan (11/22/2019 10:02 PM FERMENTING CELLARS RECEIVER): Check Braden/Chla and Trich from pap Assessment [...] on file Legal Sex Female 10:35 PM FERMENTING CELLARS RECEIVER Gender Identity Not on file Sexual Orientation [...] (07/14/2019 1:11 PM CDT) HepBsAg NONREACT NONREACTIVE [facility] Comment: Siemens CentaurXP using EMMY (chemiluminescent immunoassay) technology. NONREACTIVE: IgM antibodies to Hepatitis B Surface antigen not detected. REACTIVE: IgM antibodies to Hepatitis B Surface antigen detected. Reactive results will be confirmed by neutralization testing. HBsAb qn 33.60 mIU/mL [facility] Comment: Siemens CentaurXP using EMMY (chemiluminescent immunoassay) technology. 9.99 IU/L or less.....NONREACTIVE: IgM antibodies to Hepatitis B Surface antibody are not detected. 10.00 IU/L or greater..REACTIVE: IgM antibodies to Hepatitis B Surface antibody are detected. Hep B core IgM NONREACT NONREACTIVE [facility] Comment: Siemens CentaurXP using EMMY (chemiluminescent immunoassay) technology. NONREACTIVE: IgM antibodies to Hepatitis B Core antigen not detected. EQUIVOCAL: IgM antibodies to Hepatitis B Core antigen may or may not be present. Obtain a new specimen and retest. REACTIVE: IgM antibodies to Hepatitis B Core antigen detected. Hep A IgM NONREACT NONREACTIVE [facility] Comment: Siemens CentaurXP using EMMY (chemiluminescent immunoassay) technology. NONREACTIVE: IgM antibodies to Hepatitis A not detected. This does not exclude possibility of exposure to Hepatitis A or early acute infection. EQUIVOCAL:IgM antibodies to Hepatitis A may or may not be present. Suggest recollection and retest. REACTIVE: Antibodies to Hepatitis A detected. Hep C Ab NONREACT NONREACTIVE [facility] Comment: Siemens CentaurXP using EMMY (chemiluminescent immunoassay) [...] LAB MICROBIOLOGY - GENERAL ORDERABLES Final Result [id number] [place] [address], [facility] [phone] from Last 3 Months or Most Recently Relevant to Health Maintenance Insurance [employer] [facility] Care Teams Special Agent Group Insurance Relationship Specialty Start Date End Date Mansi Perez PA [address] [place] [address] PCP - General Internal Medicine 05/22/19
--- OUTSIDE RECORDS SUMMARY | 2025-04-23 10:05 | XMS_ITS | Encounter Summary ---
Author Organization [facility] Care Team Providers Care Hoop Maker Name Role Phone Mansi Perez Primary Care Provider +1- [phone] Encounter Details Date Type Department Care Team (Latest Contact Info) Description 11/06/2018 Orders Only [facility] CLINCONV ProviderRigo MD [address] [place] [address] Social History Tobacco Use Types Packs/Day Years Used Date Smoking Tobacco: Never Assessed Comments Unknown Sex and Gender Information Value Date Recorded Sex Assigned at Not on file Legal Sex Female 10:35 PM STRAP MACHINE OPERATOR Gender Identity Not on file Sexual Orientation Not on file documented as of this encounter Plan of Treatment Not on file documented as of this encounter Procedures Procedure Name Priority Date/Time Associated Diagnosis Comments SCAN - LABS 11/06/2018 12:00 AM STRAP MACHINE OPERATOR documented in this encounter Results * SCAN - LABS (11/06/2018 12:00 AM STRAP MACHINE OPERATOR) Narrative 11/06/2018 12:00 AM STRAP MACHINE OPERATOR Ordered by an unspecified provider. Historical Provider Final Res ult documented in this encounter Visit Diagnoses Not on filedocumented in this encounter Additional Health Concerns Infection Onset Date Last Indicated Resolved Time MRSA Comment:MRSA Isolation [facility] 01/27/25 09/12/2024 09/12/2024 01/27/2025 6:[address] documented as of this encounter Care Teams Hoop Maker Relationship Specialty Start Date End Date Mansi Perez PA [address] [place] [address] PCP - General Internal Medicine 05/22/19 documented as of this encounter
--- OUTSIDE RECORDS SUMMARY | 2025-04-23 10:06 | XMS_ITS | Clinical Summary ---
Author Organization [facility] Medical Office Building [address] Address [address] [place] [address] Care Team Providers Care Advertising Assistant Name Role Phone Mansi Perez Primary Care Provider +1- [phone] Allergies No known active allergies Medications No known medications Active Problems Problem Noted Date Diagnosed Date Annual physical exam 11/22/2019 Assessment & Plan (11/22/2019 10:02 PM PSYCH SOCIAL WORKER): Encouraged healthy lifestyle, good nutrition and exercise. Encouraged Calcium and Vitamin D and weight bearing exercise for bone health. Reviewed immunizations Reviewed age appropirate screenings. Calculus of gallbladder with out cholecystitis without obstruction 11/11/2019 Assessment & Plan (11/22/2019 10:01 PM PSYCH SOCIAL WORKER): This is a significant, separately identifiable problem that was evaluated and managed on the same day as the wellness exam Reviewed GB diet. Refer to Surgeon for further evaluation/discuss cholecystectomy. Morbid obesity with BMI of 50.0-59.9, adult 06/25 Assessment & Plan (11/11/2019 8:50 AM PSYCH SOCIAL WORKER): Obesity is unchanged. Discussed the patient's [...] 07/03/2019 Assessment & Plan (11/22/2019 10:01 PM PSYCH SOCIAL WORKER): Stable without medication Assessment & Plan [...] 01/2019--->01/2022 Assessment & Plan (11/22/2019 10:01 PM PSYCH SOCIAL WORKER): Tolerating well Assessment & Plan (07/03/2019 5:25 PM CDT): Placed 02/16/2019 by JENNIFFER Perez Resolved Problems Problem Noted Date Diagnosed Date Resolved Date Cervical cancer screening 11/22/2019 Assessment & Plan (11/22/2019 10:02 PM PSYCH SOCIAL WORKER): Pap obtained today Other fatigue 07/18/2019 11/22/2019 Assessment & Plan (07/18/2019 11:58 PM CDT): Probably multifactorial. Check labs and followup to re-evaluate Screening examination for ST D (sexually transmitted disease) 07/18/2019 11/08/2020 Assessment & Plan (11/22/2019 10:02 PM PSYCH SOCIAL WORKER): Check Braden/Chla and Trich from pap [...] on file Legal Sex Female 10:35 PM PSYCH SOCIAL WORKER Gender Identity Not on file Sexual [...] (07/14/2019 1:11 PM CDT) HepBsAg NONREACT NONREACTIVE [facility] Comment: Siemens Patient CommunicatoraurXP using EMMY (chemiluminescent immunoassay) technology. NONREACTIVE: IgM antibodies to Hepatitis B Surface antigen not detected. REACTIVE: IgM antibodies to Hepatitis B Surface antigen detected. Reactive results will be confirmed by neutralization testing. HBsAb qn 33.60 mIU/mL [facility] Comment: Siemens CentaurXP using EMMY (chemiluminescent immunoassay) technology. 9.99 IU/L or less.....NONREACTIVE: IgM antibodies to Hepatitis B Surface antibody are not detected. 10.00 IU/L or greater..REACTIVE: IgM antibodies to Hepatitis B Surface antibody are detected. Hep B core IgM NONREACT NONREACTIVE [facility] Comment: Siemens CentaurXP using EMMY (chemiluminescent immunoassay) technology. NONREACTIVE: IgM antibodies to Hepatitis B Core antigen not detected. EQUIVOCAL: IgM antibodies to Hepatitis B Core antigen may or may not be present. Obtain a new specimen and retest. REACTIVE: IgM antibodies to Hepatitis B Core antigen detected. Hep A IgM NONREACT NONREACTIVE [facility] Comment: Siemens CentaurXP using EMMY (chemiluminescent immunoassay) technology. NONREACTIVE: IgM antibodies to Hepatitis A not detected. This does not exclude possibility of exposure to Hepatitis A or early acute infection. EQUIVOCAL:IgM antibodies to Hepatitis A may or may not be present. Suggest recollection and retest. REACTIVE: Antibodies to Hepatitis A detected. Hep C Ab NONREACT NONREACTIVE [facility] Comment: Siemens CentaurXP using EMMY (chemiluminescent immunoassay) [...] LAB MICROBIOLOGY - GENERAL ORDERABLES Final Result [facility] [address] [place] [address], [facility] [phone] from Last 3 Months or Most Recently Relevant to Health Maintenance Insurance IDPA IDPA [facility] HMO/PPO Address: [address] [address] [place] [address] Care Teams Advertising Assistant Relationship Specialty Start Date End Date Mansi Perez PA [address] [place] [address] PCP - General Internal Medicine 05/22/19
[2025-04-23 11:23] VITALS: BP 128/87; PULSE 72; RESP 14; TEMP 36.8; O2SAT 100
--- OUTSIDE RECORDS SUMMARY | 2025-04-23 12:18 | XMS_ITS | Clinical Summary ---
Author Organization [facility] Address [address] [place] [address] Care Team Providers Care Varnish Supervisor Name Role Phone Unavailable Primary Care Provider Unavailabl e Source Comments [facility],non-owned Affiliates and Associated Physician Practices is amultiple site organization consisting of ambulatory clinics and hospital sitesin [place], [place], [place] and [place]. This disclosure is being madepursuant to the Care Everywhere program and may not contain all information available regarding this patient. Last updated 18.[facility] Allergies No known active allergies Medications * [...] on file Legal Sex Female 5:35 AM SUPERVISOR ORNAMENTAL IRONWORKING Gender Identity Not on file Sexual Orientation [...] HEPATITIS C ANTIBODY Routine 10/12/2014 1:29 PM SUPERVISOR ORNAMENTAL IRONWORKING from Last 3 Months or Most Recently [...] old. For additional information please refer to http://education.[employer])/faq/QGP012 (This link is being provided for informational/ educational purposes only.) Test Performed at: [facility] [id number] BEENA PRIETO DO,MPH 05/12/2015 3:54 PM CDT 05/12/2015 3:55 PM CDT us Historical Provider LAB - HEMATOLOGY ORDERABL ES Edited Result - Final [facility] ([facility]) [id number] * HEPATITIS C ANTIBODY (10/12/2014 1:29 PM SUPERVISOR ORNAMENTAL IRONWORKING) Hepatitis C Antibody NON-REACTI VE NON-REACT HELADIO [facility] ([facility]) Signal/Cutoff 0.08 <1.00 [facility] ([facility]) Comment: Test Performed at: [facility] [id number] [address] [employer] [id number] BEENA PRIETO DO,MPH Blood specimen (specimen) BLOOD SPECIMEN / Unknown 10/12/2014 1:29 PM SUPERVISOR ORNAMENTAL IRONWORKING 10/12/2014 1:30 PM SUPERVISOR ORNAMENTAL IRONWORKING us Nat Arana MD LAB - CHEMISTRY ORDERABLES Edited Result - Final [facility] I) [id number] from Last 3 Months or Most Recently Relevant to Health Maintenance Advance Directives * Full Code (Latest Code Status on File) Date Activated Date Inactivated Comments 12/06/2015 1:00 AM 12/08/2015 3:37 PM * Full Code Date Activated Date Inactivated Comments 12/05/2015 8:18 PM 12/06/2015 1:00 AM
--- OUTSIDE RECORDS SUMMARY | 2025-04-23 12:18 | XMS_ITS | Encounter Summary ---
Author Organization [facility] Care Team Providers Care Machinery Cleaner Name Role Phone Mansi Perez Primary Care Provider +1- [phone] Encounter Details Date Type Department Care Team (Latest Contact Info) Description 11/06/2018 Orders Only [facility] CLINCONV ProviderRigo MD [address] [place] [address] Social History Tobacco Use Types Packs/Day Years Used Date Smoking Tobacco: Never Assessed Comments Unknown Sex and Gender Information Value Date Recorded Sex Assigned at Not on file Legal Sex Female 10:35 PM HUMID SYSTEM OPERATOR Gender Identity Not on file Sexual Orientation Not on file documented as of this encounter Plan of Treatment Not on file documented as of this encounter Procedures Procedure Name Priority Date/Time Associated Diagnosis Comments SCAN - LABS 11/06/2018 12:00 AM HUMID SYSTEM OPERATOR documented in this encounter Results * SCAN - LABS (11/06/2018 12:00 AM HUMID SYSTEM OPERATOR) Narrative 11/06/2018 12:00 AM HUMID SYSTEM OPERATOR Ordered by an unspecified provider. Historical Provider Final Res ult documented in this encounter Visit Diagnoses Not on filedocumented in this encounter Additional Health Concerns Infection Onset Date Last Indicated Resolved Time MRSA Comment:MRSA Isolation Long Term 01/27/25 09/12/2024 09/12/2024 01/27/2025 6:[address] documented as of this encounter Care Teams Machinery Cleaner Relationship Specialty Start Date End Date Mansi Perez PA [address] [place] [address] PCP - General Internal Medicine 05/22/19 documented as of this encounter
--- OUTSIDE RECORDS SUMMARY | 2025-04-23 12:18 | XMS_ITS | Encounter Summary ---
Author Organization [facility] Care Team Providers Care Color Specialist Name Role Phone Mansi Perez Primary Care Provider +1- [phone] Encounter Details Date Type Department Care Team (Latest Contact Info) Description 02/16/2019 Orders Only [facility] CLINCONV ProviderRigo MD [address] [place] [address] Social History Tobacco Use Types Packs/Day Years Used Date Smoking Tobacco: Never Assessed Comments Unknown Sex and Gender Information Value Date Recorded Sex Assigned at Not on file Legal Sex Female 10:35 PM INSOLE TAPER Gender Identity Not on file Sexual Orientation [...] Last Indicated Resolved Time MRSA Comment:MRSA Isolation [facility] 01/27/25 09/12/2024 09/12/2024 01/27/2025 6:[address] documented as of this encounter Care Teams Color Specialist Relationship Specialty Start Date End Date Mansi Perez PA [address] [place] [id number] PCP - General Internal Medicine 05/22/19 documented as of this encounter
--- OUTSIDE RECORDS SUMMARY | 2025-04-23 12:19 | XMS_ITS | Clinical Summary ---
Author Organization [facility] Address [address] [place] [address] Care Team Providers Care Toddler Teacher Name Role Phone Mansi Perez Primary Care Provider +1- [phone] Allergies No known active allergies Medications No known medications Active Problems Problem Noted Date Diagnosed Date Annual physical exam 11/22/2019 Assessment & Plan (11/22/2019 10:02 PM ZINC CHLORIDE OPERATOR): Encouraged healthy lifestyle, good nutrition and exercise. Encouraged Calcium and Vitamin D and weight bearing exercise for bone health. Reviewed immunizations Reviewed age appropirate screenings. Calculus of gallbladder with out cholecystitis without obstruction 11/11/2019 Assessment & Plan (11/22/2019 10:01 PM ZINC CHLORIDE OPERATOR): This is a significant, separately identifiable problem that was evaluated and managed on the same day as the wellness exam Reviewed GB diet. Refer to Surgeon for further evaluation/discuss cholecystectomy. Morbid obesity with BMI of 50.0-59.9, adult 06/25 Assessment & Plan (11/11/2019 8:50 AM ZINC CHLORIDE OPERATOR): Obesity is unchanged. Discussed the patient's BMI. [...] 07/03/2019 Assessment & Plan (11/22/2019 10:01 PM ZINC CHLORIDE OPERATOR): Stable without medication Assessment & Plan (07/18/2019 [...] 01/2019--->01/2022 Assessment & Plan (11/22/2019 10:01 PM ZINC CHLORIDE OPERATOR): Tolerating well Assessment & Plan (07/03/2019 5:25 PM CDT): Placed 02/16/2019 by JENNIFFER Perez Resolved Problems Problem Noted Date Diagnosed Date Resolved Date Cervical cancer screening 11/22/2019 Assessment & Plan (11/22/2019 10:02 PM ZINC CHLORIDE OPERATOR): Pap obtained today Other fatigue 07/18/2019 11/22/2019 Assessment & Plan (07/18/2019 11:58 PM CDT): Probably multifactorial. Check labs and followup to re-evaluate Screening examination for ST D (sexually transmitted disease) 07/18/2019 11/08/2020 Assessment & Plan (11/22/2019 10:02 PM ZINC CHLORIDE OPERATOR): Check Braden/Chla and Trich from pap Assessment [...] on file Legal Sex Female 10:35 PM ZINC CHLORIDE OPERATOR Gender Identity Not on file Sexual [...] (07/14/2019 1:11 PM CDT) HepBsAg NONREACT NONREACTIVE [facility] Comment: Siemens BioTimeaurXP using EMMY (chemiluminescent immunoassay) technology. NONREACTIVE: IgM antibodies to Hepatitis B Surface antigen not detected. REACTIVE: IgM antibodies to Hepatitis B Surface antigen detected. Reactive results will be confirmed by neutralization testing. HBsAb qn 33.60 mIU/mL [facility] Comment: Siemens CentaurXP using EMMY (chemiluminescent immunoassay) technology. 9.99 IU/L or less.....NONREACTIVE: IgM antibodies to Hepatitis B Surface antibody are not detected. 10.00 IU/L or greater..REACTIVE: IgM antibodies to Hepatitis B Surface antibody are detected. Hep B core IgM NONREACT NONREACTIVE [facility] Comment: Siemens CentaurXP using EMMY (chemiluminescent immunoassay) technology. NONREACTIVE: IgM antibodies to Hepatitis B Core antigen not detected. EQUIVOCAL: IgM antibodies to Hepatitis B Core antigen may or may not be present. Obtain a new specimen and retest. REACTIVE: IgM antibodies to Hepatitis B Core antigen detected. Hep A IgM NONREACT NONREACTIVE [facility] Comment: Siemens CentaurXP using EMMY (chemiluminescent immunoassay) technology. NONREACTIVE: IgM antibodies to Hepatitis A not detected. This does not exclude possibility of exposure to Hepatitis A or early acute infection. EQUIVOCAL:IgM antibodies to Hepatitis A may or may not be present. Suggest recollection and retest. REACTIVE: Antibodies to Hepatitis A detected. Hep C Ab NONREACT NONREACTIVE [facility] Comment: Siemens CentaurXP using EMMY [...] LAB MICROBIOLOGY - GENERAL ORDERABLES Final Result [facility] [address] [place] [address], [facility] [phone] from Last 3 Months or Most Recently Relevant to Health Maintenance Insurance IDPA IDPA [facility] H[facility]/PPO Address: [address] [address] [place] [address] Care Teams Toddler Teacher Relationship Specialty Start Date End Date Mansi Perez PA [address] [place] [address] PCP - General Internal Medicine 05/22/19
--- OUTSIDE RECORDS SUMMARY | 2025-04-23 12:19 | XMS_ITS | Referral Summary ---
Author Organization [facility] Medical Office Building [address] Address [address] [place] [address] Care Team Providers Care Field Marketing Coordinator Name Role Phone Mansi Perez Primary Care Provider +1- [phone] Allergies No known active allergies Medications No known medications Active Problems Problem Noted Date Diagnosed Date Annual physical exam 11/22/2019 Assessment & Plan (11/22/2019 10:02 PM JEWEL INSPECTOR): Encouraged healthy lifestyle, good nutrition and exercise. Encouraged Calcium and Vitamin D and weight bearing exercise for bone health. Reviewed immunizations Reviewed age appropirate screenings. Calculus of gallbladder with out cholecystitis without obstruction 11/11/2019 Assessment & Plan (11/22/2019 10:01 PM JEWEL INSPECTOR): This is a significant, separately identifiable problem that was evaluated and managed on the same day as the wellness exam Reviewed GB diet. Refer to Surgeon for further evaluation/discuss cholecystectomy. Morbid obesity with BMI of 50.0-59.9, adult 06/25 Assessment & Plan (11/11/2019 8:50 AM JEWEL INSPECTOR): Obesity is unchanged. Discussed the patient's BMI. [...] 07/03/2019 Assessment & Plan (11/22/2019 10:01 PM JEWEL INSPECTOR): Stable without medication Assessment & Plan (07/18/2019 [...] 01/2019--->01/2022 Assessment & Plan (11/22/2019 10:01 PM JEWEL INSPECTOR): Tolerating well Assessment & Plan (07/03/2019 5:25 PM CDT): Placed 02/16/2019 by JENNIFFER Perez Resolved Problems Problem Noted Date Diagnosed Date Resolved Date Cervical cancer screening 11/22/2019 Assessment & Plan (11/22/2019 10:02 PM JEWEL INSPECTOR): Pap obtained today Other fatigue 07/18/2019 11/22/2019 Assessment & Plan (07/18/2019 11:58 PM CDT): Probably multifactorial. Check labs and followup to re-evaluate Screening examination for ST D (sexually transmitted disease) 07/18/2019 11/08/2020 Assessment & Plan (11/22/2019 10:02 PM JEWEL INSPECTOR): Check Braden/Chla and Trich from pap Assessment [...] on file Legal Sex Female 10:35 PM JEWEL INSPECTOR Gender Identity Not on file Sexual Orientation [...] (07/14/2019 1:11 PM CDT) HepBsAg NONREACT NONREACTIVE [facility] Comment: Siemens CentaurXP using EMMY (chemiluminescent immunoassay) technology. NONREACTIVE: IgM antibodies to Hepatitis B Surface antigen not detected. REACTIVE: IgM antibodies to Hepatitis B Surface antigen detected. Reactive results will be confirmed by neutralization testing. HBsAb qn 33.60 mIU/mL [facility] Comment: Siemens CentaurXP using EMMY (chemiluminescent [...] antigen detected. Hep A IgM NONREACT NONREACTIVE [facility] Comment: Siemens CentaurXP using EMMY (chemiluminescent immunoassay) technology. NONREACTIVE: IgM antibodies to Hepatitis A not detected. This does not exclude possibility of exposure to Hepatitis A or early acute infection. EQUIVOCAL:IgM antibodies to Hepatitis A may or may not be present. Suggest recollection and retest. REACTIVE: Antibodies to Hepatitis A detected. Hep C Ab NONREACT NONREACTIVE [facility] Comment: Siemens CentaurXP using EMMY (chemiluminescent [...] LAB MICROBIOLOGY - GENERAL ORDERABLES Final Result [place] [id number] [place] [address], [facility] [phone] from Last 3 Months or Most Recently Relevant to Health Maintenance Insurance [employer] [facility] Care Teams Field Marketing Coordinator Relationship Specialty Start Date End Date Mansi Perez PA [address] [place] [address] PCP - General Internal Medicine 05/22/19
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
[2025-04-23 14:38] VITALS: BP 134/88; PULSE 77; RESP 14; O2SAT 100
== END 2025-04-23 14:48 | disposition home or self-care (01) ==
PROVIDERS: Emergency Provider Physician Assistant; PCP Nurse Practitioner Family
DX: S16.1XXA Strain of muscle, fascia and tendon at neck level, initial encounter (principal); V49.50XA Passenger injured in collision with unspecified motor vehicles in traffic accident, initial encounter
CPT/HCPCS: 70450; 72125; 73030; 99284

== ENCOUNTER 2025-04-25 14:40 | Emergency (ER) | payer BC, SELFPAY ==
[2025-04-25 14:55] VITALS: BP 121/60; PULSE 92; RESP 14; TEMP 36.6; O2SAT 99
--- NOTE | 2025-04-25 15:23 | ED_ITS ---
HPI - Dental/Oral General Chief complaint: Dental/Oral Stated complaint: Right cheek swollen Time Seen by Provider: 04/25/25 15:24 Source: patient, RN notes reviewed and old records reviewed Mode of arrival: ambulatory Limitations: no limitations History of Present Illness HPI Narrative: 34-year-old female presents to the [facility] with right lower jaw swelling. Started yesterday. Has taken Tylenol and ibuprofen. Onset (ago): day(s) (1) Related Data Home Medications ?Medication ?Instructions ?Recorded ?Confirmed ?Last Taken ?Type etonogestrel 68 mg subdermal 1 implant subdermal ONCE 09/09/23 Unknown History implant (Nexplanon) Allergies Allergy/AdvReac Type Severity Reaction Status Date / Time No Known Allergies Allergy Verified 04/25/25 14:53 Review of Systems Review of Systems: All systems reviewed & are unremarkable except as noted in HPI and below Constitutional: Constitutional: Reports no additional constitutional complaints ENT: Reports as per HPI Cardiovascular: Cardiovascular: Reports no additional cardiovascular complaints, Denies chest pain and Denies dyspnea Respiratory: Respiratory: Reports no additional respiratory complaints, Denies chest congestion, Denies cough and Denies dyspnea Musculoskeletal: Musculoskeletal: Reports no additional musculoskeletal complaints Integumentary/Breasts: Skin/Breast: Reports system reviewed and no additional complaints, except as docu PMF Surgical History Surgical History History of section Family History Family History Father Alcoholism Mother Asthma Hypertension Depression Thyroid condition Sibling Asthma Depression Grandparent Diabetes mellitus Social History Social History Smoking status: Never smoker Alcohol intake: never Substance use: never Lack of Food: Never True Current Housing: I Have Housing Concerned About Future Housing: No Difficulty Paying Gas/Electric Bills: No Difficulty Paying for Meds: No Currently Unemployed: No Education: High School Diploma/GED Occupation/Education: occupation Gender identity (if verbalized by the patient): Female Comments At the time of my signature, I reviewed and agree with the nursing past medical, surgical, social, and family history. There is no relevant family history pertinent to the patient complaint. Exam Const: General: cooperative, healthy appearing, comfortable, no acute distress, well developed, alert and well nourished Nutritional Appearance: well nourished Orientation/consciousness: patient oriented x3 Limitations: no limitations HENMT: Head: normal to inspection Ears: hearing grossly normal bilaterally, external ears normal, TM's normal bilaterally, EAC's normal, mastoids normal and no periauricular adenopathy Face and sinus: normal facial exam, sinuses nontender and face symmetric Mouth: Yes Normal oral and palatal mucosa present, Yes lip normal, Yes tongue normal and Yes moist mucous membranes Teeth and gingiva: abnormal tooth and associated gingiva (Right lower jaw, caries noted, surrounding gingival erythema with edema) and fair dentition Throat: posterior oropharynx normal, uvula midline and no uvular edema Eyes: General: appearance normal, both eyes and all related structures Alignment and Position: alignment normal Neck: Neck: normal visual inspection, full ROM, no lymphadenopathy and no meningeal signs Chest: Chest palpation & inspection: normal inspection of the chest Resp: Effort & Inspection: normal respiratory effort and able to speak in complete sentences Auscultation: clear to auscultation bilaterally, no crackles, no rales, no rhonchi and no wheezes Cardio: Rate: regular rate Skin: General skin exam: normal color and no rashes or lesions noted Neuro: General: patient oriented x3, gait normal, moves all extremities and no meningeal signs Cognition (Neuro): normal cognition Speech: normal speech Gait exam (Neuro): Normal gait present Extrem: General: normal to inspection, full ROM, capillary refill normal and normal gait Psych: Appearance: grossly normal and well kempt Mental Status: mental status grossly normal Speech and movement: Normal speech and movement present and Clear speech present Affect: normal affect Attitude: cooperative Course Course Level of Care: Express Care Visit Vital Signs Vital signs: Vital Signs Temperature 97.8 F 04/25/25 14:55 Pulse Rate 92 04/25/25 14:55 Respiratory Rate 14 04/25/25 14:55 Blood Pressure 121/60 04/25/25 14:55 Pulse Oximetry 99 04/25/25 14:55 Temperature 97.8 F 04/25/25 14:55 Pulse Rate 92 04/25/25 14:55 Respiratory Rate 14 04/25/25 14:55 Blood Pressure 121/60 04/25/25 14:55 Pulse Oximetry 99 04/25/25 14:55 Reviewed MDM - Dental/Oral MDM Narrative Medical decision making narrative: Patient sitting in exam room. Patient is nontoxic, vitals stable. Patient presents with right lower jaw pain and swelling for 1 day. Probable infection to the gingiva. Will cover with penicillin, provider list for dental given. Patient appropriate for outpatient treatment and follow-up Discharge instructions reviewed with patient, as well as provided in writing per nursing staff. The instructions also include specific and strict return/GO TO THE ER as well as f/u information. All questions have been answered, and the patient deny any further questions with discharge and discharge plan. Some parts of this dictation were generated by voice recognition software and may contain typographical and/or grammatical inaccuracies. Differential Diagnosis Differential diagnosis: Likely gingival abscess, dental caries, toothache, dental abscess, fracture of tooth and aphthous ulcer Critical Care Time Critical Care Time Critical Care Time: No Discharge Plan Discharge Clinical Impression: Toothache, Dental abscess Patient Disposition: Home Condition: Stable Instructions: Antibiotic Form, Dental Abscess (ED) Additional Instructions: Finish the entire course of antibiotics. brush teeth in use a mouthwash After every time you eat be sure to use salt water rinses. Apply ice to face to help with pain. Take Tylenol alternating with Motrin as needed for pain. You can alternate every 4 hours You need to follow-up with a dental provider as soon as possible for further evaluation and treatment. A list of dental providers has been given to you Follow up with a Primary Care Provider (PCP) about medical needs. A PCP can help keep you healthy by preventive medicine and screening. Go to the ER for New or worsening symptoms. Patient Language: [place] Prescriptions: No Action Nexplanon 68 mg implant 1 implant subdermal ONCE Rx Instructions: as a single dose cyclobenzaprine 10 mg tablet 10 mg PO TID PRN (Reason: muscle spasm) Qty: 14 0RF Follow-up/Referrals: UNKNOWN,DOCTOR [Primary Care Provider] - Stand Alone Forms: Work/School Release IP Time of Disposition: 15:40
== END 2025-04-25 15:46 | disposition home or self-care (01) ==
PROVIDERS: Emergency Provider Nurse Practitioner
DX: K08.89 Other specified disorders of teeth and supporting structures (principal); K04.7 Periapical abscess without sinus
CPT/HCPCS: 99213; G0463

== ENCOUNTER 2025-08-17 16:35 | Emergency (ER) | payer BC, SELFPAY ==
--- OUTSIDE RECORDS SUMMARY | 2022-08-28 06:00 | XMS_ITS | Continuity of Care Document ---
Author Organization [facility] Address [address] [place] [address] Phone Care Team Providers Care Lean Six Sigma Senior Specialist Name Role Phone Unavailable Unavailable Unavailable Isaura Juarez LPN Unavailable Unavailab le Allergies, Adverse Reactions, Alerts Substance Reaction Status Criticality No Known Allergies Active No Inform ation Procedures Procedure Date NURSE VISIT- TB PROGRAM SKIN TEST; TUBERCULOSIS, INTRADERMAL Aug Advance Directives Directive Yes / No Effective Date File Name No Information Encounters Encounter Description Practice Location Reason(s) For Visit Diagnoses Date Provider Providers Copied on Encounter [facility] , [address], [place], [place], [id number], tel:[phone] [facility] [place] PPD Placement (chief complaint) Encounter for screening for respiratory tuberculosis No Information Consulting Provider: Anthony Bosch [address], [place], [address]. tel:[phone] Family History Family Member Type Diagnosis Age At Onset No Information Payers Payer name Insurance type Covered republican ID Authoriza tion(s) No Information Social History Type Description Quantity Date Captured Comments Alcohol Use Details Unknown Caffeine Use Details Unknown Tobacco Use Status No Information Smoking Status No Information Sex Female Sexual Orientation Straight or heterosexual Aug Gender Identity Female Vital Signs Date / Time: Height Weight BMI Pulse Rate Blood Pressure Temperature Respiratory Rate Body Surface Area Head Circumference Head Circ. Percentile Wt./Nehemiah. Percentile BMI percentile Pulse Ox Inhaled Ox 2:04 PM 65.00 in 145.694 kg (321.20 lbs) 53.4 5 kg/m eter (2) 74 /min 111/73 mm[Hg] 99.00 F 18 /min 96 % 21 % Chief Complaint And Reason For Visit From encounter dated '08/28/2022 11:00'. PPD Placement (chief complaint). Description: Will return on 08/30/22 for reading. Reason For Referral Reason For Referral No Information History Of Present Illness Encounter Date Complaint History Of Prese nt Illness PPD Placement Will return on for reading. Functional Status Date Functional Assessmen t Pain Score 0/10 Instructions Date Instruction Additional Infor mation No Information Assessments Type Assessment Date assessment Encounter for screening for resp iratory tuberculosis Patient Care Teams Name Effective Dates (start - stop) Status Members No Information
--- NOTE | ~2025-08-17 | XR_ITS ---
XR abdomen/kub 1V 08/17/2025 17:21 INDICATION: Constipation TECHNIQUE: KUB COMPARISON: None FINDINGS: Bowel gas pattern is normal. There is no evidence of free air, mass, organomegaly, ascites or obstruction. No abnormal calculi are seen. The bones appear intact. IMPRESSION: 1: No acute abdominal abnormality identified. Reviewed, dictated and finalized at location O.
--- OUTSIDE RECORDS SUMMARY | 2025-08-17 16:38 | XMS_ITS | Encounter Summary ---
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
--- OUTSIDE RECORDS SUMMARY | 2025-08-17 16:38 | XMS_ITS | Encounter Summary ---
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 Historical Provider Final Res ult documented in this encounter Visit Diagnoses Not on filedocumented in this encounter Additional Health Concerns Infection Onset Date Last Indicated Resolved Time MRSA Comment:MRSA Isolation Skilled Nursing 01/27/25 09/12/2024 09/12/2024 01/27/2025 6:[address] documented as of this encounter Care Teams Sanitation Worker Cleaning Equipment Relationship Specialty Start Date End Date Mansi Perez PA [address] [place] [address] PCP - General Internal Medicine 05/22/19 documented as of this encounter
--- OUTSIDE RECORDS SUMMARY | 2025-08-17 16:38 | XMS_ITS | Clinical Summary ---
Author Organization [facility] Medical Office Building [address] Address [address] [place] [address] Care Team Providers Care Salvage Cutter Name Role Phone Mansi Perez Primary Care Provider +1- [phone] Allergies No known active allergies Medications No known medications Active Problems Problem Noted Date Diagnosed Date Annual physical exam 11/22/2019 Assessment & Plan (11/22/2019 10:02 PM TUBE BUILDER AIRPLANE): Encouraged healthy lifestyle, good nutrition and exercise. Encouraged Calcium and Vitamin D and weight bearing exercise for bone health. Reviewed immunizations Reviewed age appropirate screenings. Calculus of gallbladder with out cholecystitis without obstruction 11/11/2019 Assessment & Plan (11/22/2019 10:01 PM TUBE BUILDER AIRPLANE): This is a significant, separately identifiable problem that was evaluated and managed on the same day as the wellness exam Reviewed GB diet. Refer to Surgeon for further evaluation/discuss cholecystectomy. Morbid obesity with BMI of 50.0-59.9, adult 06/25 Assessment & Plan (11/11/2019 8:50 AM TUBE BUILDER AIRPLANE): Obesity is unchanged. Discussed the patient's BMI. [...] 07/03/2019 Assessment & Plan (11/22/2019 10:01 PM TUBE BUILDER AIRPLANE): Stable without medication Assessment & Plan (07/18/2019 [...] 01/2019--->01/2022 Assessment & Plan (11/22/2019 10:01 PM TUBE BUILDER AIRPLANE): Tolerating well Assessment & Plan (07/03/2019 5:25 PM CDT): Placed 02/16/2019 by JENNIFFER Perez Resolved Problems Problem Noted Date Diagnosed Date Resolved Date Cervical cancer screening 11/22/2019 Assessment & Plan (11/22/2019 10:02 PM TUBE BUILDER AIRPLANE): Pap obtained today Other fatigue 07/18/2019 11/22/2019 Assessment & Plan (07/18/2019 11:58 PM CDT): Probably multifactorial. Check labs and followup to re-evaluate Screening examination for ST D (sexually transmitted disease) 07/18/2019 11/08/2020 Assessment & Plan (11/22/2019 10:02 PM TUBE BUILDER AIRPLANE): Check Braden/Chla and Trich from pap Assessment [...] on file Legal Sex Female 10:35 PM TUBE BUILDER AIRPLANE Gender Identity Not on file Sexual Orientation [...] Visit/Exam 18-64 11/11/2020 11/11/2019, 09/02/2018 Influenza Vaccine (#1) 2025 09/23/2019, 2017 DTaP/Tdap/Td Vaccine (3 - Td or Tdap) [...] (07/14/2019 1:11 PM CDT) HepBsAg NONREACT NONREACTIVE [facility] Comment: Siemens [employer] using EMMY (chemiluminescent immunoassay) technology. NONREACTIVE: IgM antibodies to Hepatitis B Surface antigen not detected. REACTIVE: IgM antibodies to Hepatitis B Surface antigen detected. Reactive results will be confirmed by neutralization testing. HBsAb qn 33.60 mIU/mL [facility] Comment: Siemens [employer] using EMMY (chemiluminescent immunoassay) technology. 9.99 IU/L or less.....NONREACTIVE: IgM antibodies to Hepatitis B Surface antibody are not detected. 10.00 IU/L or greater..REACTIVE: IgM antibodies to Hepatitis B Surface antibody are detected. Hep B core IgM NONREACT NONREACTIVE [facility] Comment: Siemens Cent[employer] using EMMY (chemiluminescent immunoassay) technology. NONREACTIVE: IgM antibodies to Hepatitis B Core antigen not detected. EQUIVOCAL: IgM antibodies to Hepatitis B Core antigen may or may not be present. Obtain a new specimen and retest. REACTIVE: IgM antibodies to Hepatitis B Core antigen detected. Hep A IgM NONREACT NONREACTIVE [facility] Comment: Siemens CentaurXP using EMMY (chemiluminescent immunoassay) technology. NONREACTIVE: IgM antibodies to Hepatitis A not detected. This does not exclude possibility of exposure to Hepatitis A or early acute infection. EQUIVOCAL:IgM antibodies to Hepatitis A may or may not be present. Suggest recollection and retest. REACTIVE: Antibodies to Hepatitis A detected. Hep C Ab NONREACT NONREACTIVE [facility] Comment: Siemens CentaurXP using EMMY (chemiluminescent [...] LAB MICROBIOLOGY - GENERAL ORDERABLES Final Result [facility] [address] [place] [address], [facility] [phone] from Last 3 Months or Most Recently Relevant to Health Maintenance Insurance IDPA IDPA [facility] Care Teams Salvage Cutter Relationship Specialty Start Date End Date Mansi Perez PA [address] [place] [address] PCP - General Internal Medicine 05/22/19
[2025-08-17 16:42] VITALS: BP 153/91; PULSE 96; RESP 17; TEMP 36.4; O2SAT 100
--- NOTE | 2025-08-17 16:59 | ED_ITS ---
HPI - General Adult General Chief complaint: Abdominal Pain <Sara Garcia March, - Last Filed: 08/18/25 19:49> Stated complaint: constipation <Sara Garcia March, Last Filed: 08/18/25 19:49> Time Seen by Provider: 08/17/25 16:59 <Sara Garcia March, - Last Filed: 08/18/25 19:49> Focused HPI: Sally Hutchinson is a 35 y/o female who presents with complaints of constipation, she states that she is having left sided abdominal pain that started yesterday, she states that she had a large painful BM yesterday broke out in a sweat and felt like she was going to pass out and now her butt hurts, and it feels ripped. She states she tried to have a BM today and couldn't go and felt like she was going to pass out again. Left abdominal pain rates 6/10 , hypoactive bowel sounds. GENERAL: Well-appearing, well-nourished, and in no acute distress. HEAD: Normocephalic, atraumatic. CHEST: Clear to auscultation. ?No respiratory distress. HEART: Regular rate and rhythm.? NEURO: ?Alert and oriented x3. Patient screened in triage and initial orders placed.? ?Additional care and disposition to be based upon?diagnostic testing and treatment. <Sara Garcia March, - Last Filed: 08/18/25 19:49> Focused HPI: Sally Hutchinson is a 35 y/o female who presents with complaints of constipation, she states that she is having left sided abdominal pain that started yesterday, she states that she had a large painful BM yesterday broke out in a sweat and felt like she was going to pass out and now her butt hurts like a hemmorhoid. She states she tried to have a BM today and couldn't go and felt like she was going to pass out again. Left abdominal pain rates 6/10. GENERAL: Well-appearing, well-nourished, and in no acute distress. HEAD: Normocephalic, atraumatic. CHEST: Clear to auscultation. ?No respiratory distress. HEART: Regular rate and rhythm.? NEURO: ?Alert and oriented x3. Patient screened in triage and initial orders placed.? ?Additional care and disposition to be based upon?diagnostic testing and treatment. <eMrvin Fortune MD - Last Filed: 08/18/25 06:56> History of Present Illness HPI narrative: Agree with HPI above: would add that she states that she has been constipated today and having difficulties with bowel movements. Endorses some hemorrhoids as well as straining to defecate. Symptoms started yesterday. Lower abdominal pain she states feels like a UTI as well. No back pain, fever, chills or traumatic injuries. Only abdominal surgical history is a 9 years ago. No complications. No hernias or abdominal masses palpated. She states she did have a bowel movement earlier today after lots of straining and defecate quite a bit but still feels like she is constipated. Was otherwise in her normal state of health. Has not tried anything at home for symptom control or any laxatives. States she feels relief after she pushes on her rectum through her vagina. Does not feel any prolapse. <Mervin Fortune MD - Last Filed: 08/18/25 06:56> Related Data Home medications: Home Medications ?Medication ?Instructions ?Recorded ?Confirmed ?Last Taken ?Type etonogestrel 68 mg subdermal 1 implant subdermal ONCE 09/09/23 Unknown History implant (Nexplanon) <Sara Aguero, PRODUCT MANAGER MEDICAL DEVICE - Last Filed: 08/18/25 19:49> Allergies/adverse reactions: Allergies Allergy/AdvReac Type Severity Reaction Status Date / Time No Known Allergies Allergy Verified 08/17/25 16:41 <Sara Aguero, PRODUCT MANAGER MEDICAL DEVICE - Last Filed: 08/18/25 19:49> Review of Systems 2 Review of Systems: As reviewed above in HPI <Mervin Fortune MD - Last Filed: 08/18/25 06:56> [facility] Surgical History Surgical History: Surgical History History of section <Sara Aguero, PRODUCT MANAGER MEDICAL DEVICE - Last Filed: 08/18/25 19:49> Family History Family History: Family History Father Alcoholism Mother Asthma Hypertension Depression Thyroid condition Sibling Asthma Depression Grandparent Diabetes mellitus <Sara Aguero, PRODUCT MANAGER MEDICAL DEVICE - Last Filed: 08/18/25 19:49> Social History Social History: Social History Smoking status: Never smoker Alcohol intake: never Substance use: never Lack of Food: Never True Current Housing: I Have Housing Concerned About Future Housing: No Difficulty Paying Gas/Electric Bills: No Difficulty Paying for Meds: No Currently Unemployed: No Education: High School Diploma/GED Occupation/Education: occupation Gender identity (if verbalized by the patient): Female <Sara Aguero, PRODUCT MANAGER MEDICAL DEVICE - Last Filed: 08/18/25 19:49> Exam 2 Narrative: GENERAL: Morbidly obese, but not any acute distress HEAD: [Normocephalic, atraumatic.] EYES: [PERRLA and EOMI.] ENT: Nares clear, no rhinorrhea or epistaxis. Mucous membranes moist. NECK: Supple. CHEST: [Clear to auscultation. No respiratory distress.] HEART: [Regular rate and rhythm]. No murmur heard. [Normal peripheral pulses.] ABDOMEN: [Soft, nondistended], [nontender], [No rigidity or guarding] no palpable masses or hernias. No signs of peritonitis. EXTREMITIES: Normal range of motion. [No edema.] SKIN: Warm, dry, no rash. NEURO: [No focal deficits]. Alert and oriented [x3.] PSYCH: [Normal mood and affect.] <Mervin Fortune MD - Last Filed: 08/18/25 06:56> Course Vital Signs Vital signs: Vital Signs Temperature 36.4 C 08/17/25 16:42 Pulse Rate 96 08/17/25 16:42 Respiratory Rate 17 08/17/25 16:42 Blood Pressure 153/91 H 08/17/25 16:42 Pulse Oximetry 100 08/17/25 16:42 Temperature 36.4 C 08/17/25 16:42 Pulse Rate 81 08/17/25 22:49 Respiratory Rate 18 08/17/25 22:49 Blood Pressure 132/74 08/17/25 22:49 Pulse Oximetry 99 08/17/25 22:49 <Sara Aguero, PRODUCT MANAGER MEDICAL DEVICE - Last Filed: 08/18/25 19:49> Vital Signs Temperature 36.4 C 08/17/25 16:42 Pulse Rate 96 08/17/25 16:42 Respiratory Rate 17 08/17/25 16:42 Blood Pressure 153/91 H 08/17/25 16:42 Pulse Oximetry 100 08/17/25 16:42 Temperature 36.4 C 08/17/25 16:42 Pulse Rate 81 08/17/25 22:49 Respiratory Rate 18 08/17/25 22:49 Blood Pressure 132/74 08/17/25 22:49 Pulse Oximetry 99 08/17/25 22:49 <Mervin Fortune MD - Last Filed: 08/18/25 06:56> Medical Decision Making MDM Narrative Medical decision making narrative: 35-year-old female presenting with constipation. She states that she has been constipated today and having difficulties with bowel movements. Endorses some hemorrhoids as well as straining to defecate. Symptoms started yesterday. Lower abdominal pain she states feels like a UTI as well. No back pain, fever, chills or traumatic injuries. Only abdominal surgical history is a 9 years ago. No complications. No hernias or abdominal masses palpated. She states she did have a bowel movement earlier today after lots of straining and defecate quite a bit but still feels like she is constipated. Was otherwise in her normal state of health. Has not tried anything at home for symptom control or any laxatives. States she feels relief after she pushes on her rectum through her vagina. Does not feel any prolapse. Patient's physical examination is reassuring. No signs of abdominal distension, bloating or any abdominal masses or hernias. Vital signs show some mild hypertension but no fevers, tachypnea or tachycardia. Soft nondistended non peritoneal abdomen. Symptoms consistent with constipation but could also be urinary infection is patient states she feels like she has UTI. She also feels like she has some hemorrhoids which can contribute to her symptoms. Patient has not tried anything at home for symptomatic control. No urgent or emergent concerns identified today. Triage abdominal x-ray and KUB shows no acute abdominal concerns such as dilated bowel loops or obvious obstruction. She was given a dose of MiraLax and magnesium citrate. Urinary analysis shows bacteria and concern for UTI. Given a dose of Keflex and sent home with the above regimen and follow-up instructions with her PCP. <Mervin Fortune MD - Last Filed: 08/18/25 06:56> Medical Records Medical records reviewed: Yes I reviewed the external patient's medical records. <Mervin Fortune MD - Last Filed: 08/18/25 06:56> Vital Signs Vital Signs: Vital Signs Temperature 36.4 C 08/17/25 16:42 Pulse Rate 96 08/17/25 16:42 Respiratory Rate 17 08/17/25 16:42 Blood Pressure 153/91 H 08/17/25 16:42 Pulse Oximetry 100 08/17/25 16:42 Temperature 36.4 C 08/17/25 16:42 Pulse Rate 81 08/17/25 22:49 Respiratory Rate 18 08/17/25 22:49 Blood Pressure 132/74 08/17/25 22:49 Pulse Oximetry 99 08/17/25 22:49 <Sara Aguero PRODUCT MANAGER MEDICAL DEVICE - Last Filed: 08/18/25 19:49> Vital Signs Temperature 36.4 C 08/17/25 16:42 Pulse Rate 96 08/17/25 16:42 Respiratory Rate 17 08/17/25 16:42 Blood Pressure 153/91 H 08/17/25 16:42 Pulse Oximetry 100 08/17/25 16:42 Temperature 36.4 C 08/17/25 16:42 Pulse Rate 81 08/17/25 22:49 Respiratory Rate 18 08/17/25 22:49 Blood Pressure 132/74 08/17/25 22:49 Pulse Oximetry 99 08/17/25 22:49 <Mervin Fortune MD - Last Filed: 08/18/25 06:56> Lab Data Lab results reviewed: Yes I reviewed the patient's lab results. <Mervin Fortune MD - Last Filed: 08/18/25 06:56> Result diagrams: 08/17/25 19:27 08/17/25 19:27 <Sara Aguero PRODUCT MANAGER MEDICAL DEVICE - Last Filed: 08/18/25 19:49> Labs: Lab Results 08/17/25 08/17/25 08/17/25 Range/Units 19:27 22:10 22:15 WBC 9.3 (4.5-10.0) K/mm3 RBC 4.75 (4.2-5.4) M/mm3 Hgb 12.2 (12.0-15.0) g/dL Hct 38.3 (37.0-47.0) % MCV 80.6 (80-100) fl MCH 25.7 L (26-34) pg MCHC 31.9 L (32-36) g/dl RDW 14.6 H (11.5-14.5) % Plt Count 299 (150-375) k/mm3 MPV 11.2 H (7.4-10.4) fl Immature Gran % (Auto) 0.3 (0-0.5) % Neut % (Auto) 56.6 (45.5-73.1) % Lymph % (Auto) 33.6 (18.3-44.2) % [place] % (Auto) 6.5 (2.6-8.5) % Eos % (Auto) 2.4 (0-4.4) % Baso % (Auto) 0.6 (0.2-1.2) % Lymph # (Auto) 3.12 (0.9-3.2) K/mm3 [place] # (Auto) 0.6 (0.1-0.6) K/mm3 Eos # (Auto) 0.2 (0-0.3) K/mm3 Baso # (Auto) 0.1 (0.0-0.1) K/mm3 Abs Immat Gran (auto) 0.03 (0.00-0.031) K/mm3 Absolute Neuts (auto) 5.3 (1.3-6.7) K/mm3 Absolute Nucleated RBC 0.000 (0.0-0.012) K/mm3 Nucleated RBC % 0.0 (0.0-0.2) % Sodium 138 (137-145) mmol/L Potassium 4.6 (3.4-5.0) mmol/L Chloride 103 (98-107) mmol/L Carbon Dioxide 23 (22-30) mmol/L Anion Gap 12 (4-12) mmol/L BUN 13 (7-17) mg/dL Creatinine 0.68 L (0.7-1.0) mg/dL Estim Creat Clear Calc 147 ml/min Estimated GFR > 60 (59 - ) Glucose 100 (65-110) mg/dL Calcium 9.7 (8.4-10.2) mg/dL Total Bilirubin 0.5 (0.2-1.3) mg/dL AST 27 (14-36) U/L ALT 18 (6-35) U/L Alkaline Phosphatase 70 (38-126) U/L Total Protein 9.4 H (6.3-8.2) g/dL Albumin 5.1 (3.5-5.1) g/dL Urine Color Yellow (Yellow) Urine Appearance Cloudy H (Clear) Urine pH 5.5 (5.0-9.0) Ur Specific [place] 1.038 H (1.001-1.035) Urine Protein Trace (Negative) mg/dL Urine Glucose (UA) Negative (Negative) mg/dL Urine Ketones Trace H (Negative) mg/dL Ur Blood (Man) Negative (Negative) Urine Nitrate Positive H (Negative) Urine Bilirubin Negative (Negative) Urine Urobilinogen 1.0 (<2.0) mg/dL Leukocyte Esterase Rfl Negative (Negative) CT/UL Urine RBC 0-2 (0-2) /hpf Urine WBC 0-5 (0-3) /hpf Ur Squamous Epith Cells Moderate (Few) /hpf Urine Bacteria 4+ H /hpf Urine Casts 3-5 POC Urine HCG, Qual Negative (Negative) <Sara Garcia March, PRODUCT MANAGER MEDICAL DEVICE - Last Filed: 08/18/25 19:49> Lab Results 08/17/25 08/17/25 08/17/25 Range/Units 19:27 22:10 22:15 WBC 9.3 (4.5-10.0) K/mm3 RBC 4.75 (4.2-5.4) M/mm3 Hgb 12.2 (12.0-15.0) g/dL Hct 38.3 (37.0-47.0) % MCV 80.6 (80-100) fl MCH 25.7 L (26-34) pg MCHC 31.9 L (32-36) g/dl RDW 14.6 H (11.5-14.5) % Plt Count 299 (150-375) k/mm3 MPV 11.2 H (7.4-10.4) fl Immature Gran % (Auto) 0.3 (0-0.5) % Neut % (Auto) 56.6 (45.5-73.1) % Lymph % (Auto) 33.6 (18.3-44.2) % [place] % (Auto) 6.5 (2.6-8.5) % Eos % (Auto) 2.4 (0-4.4) % Baso % (Auto) 0.6 (0.2-1.2) % Lymph # (Auto) 3.12 (0.9-3.2) K/mm3 [place] # (Auto) 0.6 (0.1-0.6) K/mm3 Eos # (Auto) 0.2 (0-0.3) K/mm3 Baso # (Auto) 0.1 (0.0-0.1) K/mm3 Abs Immat Gran (auto) 0.03 (0.00-0.031) K/mm3 Absolute Neuts (auto) 5.3 (1.3-6.7) K/mm3 Absolute Nucleated RBC 0.000 (0.0-0.012) K/mm3 Nucleated RBC % 0.0 (0.0-0.2) % Sodium 138 (137-145) mmol/L Potassium 4.6 (3.4-5.0) mmol/L Chloride 103 (98-107) mmol/L Carbon Dioxide 23 (22-30) mmol/L Anion Gap 12 (4-12) mmol/L BUN 13 (7-17) mg/dL Creatinine 0.68 L (0.7-1.0) mg/dL Estim Creat Clear Calc 147 ml/min Estimated GFR > 60 (59 - ) Glucose 100 (65-110) mg/dL Calcium 9.7 (8.4-10.2) mg/dL Total Bilirubin 0.5 (0.2-1.3) mg/dL AST 27 (14-36) U/L ALT 18 (6-35) U/L Alkaline Phosphatase 70 (38-126) U/L Total Protein 9.4 H (6.3-8.2) g/dL Albumin 5.1 (3.5-5.1) g/dL Urine Color Yellow (Yellow) Urine Appearance Cloudy H (Clear) Urine pH 5.5 (5.0-9.0) Ur Specific [place] 1.038 H (1.001-1.035) Urine Protein Trace (Negative) mg/dL Urine Glucose (UA) Negative (Negative) mg/dL Urine Ketones Trace H (Negative) mg/dL Ur Blood (Man) Negative (Negative) Urine Nitrate Positive H (Negative) Urine Bilirubin Negative (Negative) Urine Urobilinogen 1.0 (<2.0) mg/dL Leukocyte Esterase Rfl Negative (Negative) CT/UL Urine RBC 0-2 (0-2) /hpf Urine WBC 0-5 (0-3) /hpf Ur Squamous Epith Cells Moderate (Few) /hpf Urine Bacteria 4+ H /hpf Urine Casts 3-5 POC Urine HCG, Qual Negative (Negative) <Mervin Fortune MD - Last Filed: 08/18/25 06:56> Imaging Data Attestation: I personally reviewed and interpreted this imaging study as follows: < Mervin Fortune MD - Last Filed: 08/18/25 06:56> My impression: Impressions Abdomen X-Ray 08/17/25 17:26 IMPRESSION: 1: No acute abdominal abnormality identified. <Mervin Fortune MD - Last Filed: 08/18/25 06:56> Discharge Plan Discharge Clinical Impression: Constipation, UTI (urinary tract infection) <Sara Aguero APRN - Last Filed: 08/18/25 19:49> Patient Disposition: Home <Sara Aguero APRN - Last Filed: 08/18/25 19:49> Condition: Stable <Sara Aguero APRN - Last Filed: 08/18/25 19:49> Instructions: Antibiotic Form, Constipation (DC), Urinary Tract Infection in Women (DC) <Sara Aguero APRN - Last Filed: 08/18/25 19:49> Additional Instructions: You have a mild urinary tract infection which can be contributing to her constipation. We will send you home with antibiotics and a regimen for constipation. Return with any worsening abdominal pain, abdominal distention, inability to defecate for multiple days, nausea with inability to tolerate oral intake or any other emergent concerns. Follow-up with regular doctor. <Sara Aguero APRN - Last Filed: 08/18/25 19:49> Patient Language: Emirati <Sara Aguero APRN - Last Filed: 08/18/25 19:49> Prescriptions: New polyethylene glycol 3350 [ClearLax] 17 gram/dose powder 17 g PO DAILY Qty: 119 0RF cephalexin 500 mg capsule 500 mg PO Q12H 5 Days Qty: 10 0RF magnesium citrate Solution 300 ml PO DAILY PRN (Reason: constipation) Qty: 296 0RF No Action Nexplanon 68 mg implant 1 implant subdermal ONCE Rx Instructions: as a single dose cyclobenzaprine 10 mg tablet 10 mg PO TID PRN (Reason: muscle spasm) Qty: 14 0RF <Sara Aguero APRN - Last Filed: 08/18/25 19:49> Follow-up/Referrals: UNKNOWN,DOCTOR [Non-Staff] <Sara Aguero APRN - Last Filed: 08/18/25 19:49> Time of Disposition: 22:34 <Sara Aguero APRN - Last Filed: 08/18/25 19:49> 22:34 <Mervin Fortune MD - Last Filed: 08/18/25 06:56>
[2025-08-17 19:31] LABS: Hematocrit 38.3 % (37.0-47.0); Hemoglobin 12.2 g/dL (12.0-15.0); Immature Granulocyte Percent A 0.3 % (0-0.5); Lymphocytes Absolute Auto 3.12 K/mm3 (0.9-3.2); Mean Corpuscular HGB Conc 31.9 g/dl (32-36); Mean Corpuscular Hemoglobin 25.7 pg (26-34); Mean Corpuscular Volume 80.6 fl (80-100); Nucleated Red Blood Cells Absolute Auto 0.000 K/mm3 (0.0-0.012); Nucleated Red Blood Cells Perc 0.0 % (0.0-0.2); Platelet Count Result 299 k/mm3 (150-375); Red Blood Count 4.75 M/mm3 (4.2-5.4); White Blood Count 9.3 K/mm3 (4.5-10.0)
[2025-08-17 19:43] LABS: Alanine Aminotransferase 18 U/L (6-35); Albumin Level 5.1 g/dL (3.5-5.1); Alkaline Phosphatase 70 U/L (38-126); Anion Gap 12 mmol/L (4-12); Aspartate Amino Transferase 27 U/L (14-36); Bilirubin,Total 0.5 mg/dL (0.2-1.3); Blood Urea Nitrogen 13 mg/dL (7-17); Calcium 9.7 mg/dL (8.4-10.2); Carbon Dioxide 23 mmol/L (22-30); Chloride 103 mmol/L (98-107); Estimated CRCL calculation 147 ml/min; Estimated Glomerular Filt Rate > 60; Glucose 100 mg/dL (65-110); Potassium 4.6 mmol/L (3.4-5.0); Sodium 138 mmol/L (137-145); Total Protein 9.4 g/dL (6.3-8.2)
[2025-08-17 22:18] LABS: BEDSIDEPREGUCG Negative (Negative)
[2025-08-17 22:19] LABS: Add Urine Microscopic? YES; Appearance Urine Cloudy (Clear); Glucose Urine UA Negative (Negative); Leukocyte Esterase Ur Negative LEU/UL (Negative); Nitrate Urine Positive (Negative); Specific Grav Ur 1.038 (1.001-1.035)
[2025-08-17] MEDS: MAGNESIUM CITRATE 300 ML BTL PO (22:45)
[2025-08-17] MEDS: CEPHALEXIN 500 MG CAPSULE PO (22:46)
[2025-08-17 22:49] VITALS: BP 132/74; PULSE 81; RESP 18; O2SAT 99
== END 2025-08-17 22:50 | disposition home or self-care (01) ==
PROVIDERS: Nurse Practitioner Family; Emergency Provider Student in an Organized Health Care Education/Training Program
DX: K59.00 Constipation, unspecified (principal); N39.0 Urinary tract infection, site not specified
CPT/HCPCS: 36415; 74018; 80053; 81001; 81025; 85025; 99283; A9270

== ENCOUNTER 2025-11-22 08:23 | Emergency (ER) | payer OTHER, BC, SELFPAY ==
[2025-11-22 08:34] VITALS: BP 117/47; PULSE 88; RESP 16; TEMP 35.7; O2SAT 100
--- NOTE | 2025-11-22 08:43 | ED.GENADULT ---
HPI - General Adult General Chief complaint: Upper Respiratory Infection Stated complaint: sides of face swollen Time Seen by Provider: 11/22/25 08:43 Source: patient, RN notes reviewed and old records reviewed Mode of arrival: ambulatory Limitations: no limitations History of Present Illness HPI narrative: 35-year-old female presents to the [facility] with a feeling that her lymph nodes are swollen. States that she has had intermittent sore throat, has been exposed to strep. Related Data Home Medications ?Medication ?Instructions ?Recorded ?Confirmed ?Last Taken ?Type No Home Medications 11/22/25 11/22/25 Unknown History Allergies Allergy/AdvReac Type Severity Reaction Status Date / Time No Known Allergies Allergy Verified 11/22/25 08:59 Review of Systems Review of Systems: All systems reviewed & are unremarkable except as noted in HPI and below Constitutional: Constitutional: Reports no additional constitutional complaints ENT: Reports as per HPI Cardiovascular: Cardiovascular: Reports no additional cardiovascular complaints, Denies chest pain and Denies dyspnea Respiratory: Respiratory: Reports no additional respiratory complaints, Denies chest congestion, Denies cough and Denies dyspnea Musculoskeletal: Musculoskeletal: Reports no additional musculoskeletal complaints Integumentary/Breasts: Skin/Breast: Reports system reviewed and no additional complaints, except as docu PMFSH Surgical History Surgical History History of section Family History Family History Father Alcoholism Mother Asthma Hypertension Depression Thyroid condition Sibling Asthma Depression Grandparent Diabetes mellitus Social History Social History Smoking status: Never smoker Alcohol intake: never Substance use: never Lack of Food: Never True Current Housing: I Have Housing Concerned About Future Housing: No Difficulty Paying Gas/Electric Bills: No Difficulty Paying for Meds: No Currently Unemployed: No Education: High School Diploma/GED Occupation/Education: occupation Gender identity (if verbalized by the patient): Female Comments At the time of my signature, I reviewed and agree with the nursing past medical, surgical, social, and family history. There is no relevant family history pertinent to the patient complaint. Exam Const: General: cooperative, healthy appearing, comfortable, no acute distress, well developed, alert and well nourished Nutritional Appearance: well nourished and obese Orientation/consciousness: patient oriented x3 Limitations: no limitations HENMT: Head: normal to inspection Ears: hearing grossly normal bilaterally, external ears normal, TM's normal bilaterally, EAC's normal, mastoids normal and no periauricular adenopathy Mouth: Yes Normal oral and palatal mucosa present, Yes lip normal, Yes tongue normal and Yes moist mucous membranes Teeth and gingiva: fair dentition Throat: posterior oropharynx normal, uvula midline and no uvular edema Eyes: General: appearance normal, both eyes and all related structures Alignment and Position: alignment normal Neck: Neck: normal visual inspection, full ROM, no lymphadenopathy and no meningeal signs Chest: Chest palpation & inspection: normal inspection of the chest Resp: Effort & Inspection: normal respiratory effort and able to speak in complete sentences Auscultation: clear to auscultation bilaterally, no crackles, no rales, no rhonchi and no wheezes Cardio: Rate: regular rate Skin: General skin exam: normal color and no rashes or lesions noted Neuro: General: patient oriented x3, gait normal, moves all extremities and no meningeal signs Cognition (Neuro): normal cognition Speech: normal speech Gait exam (Neuro): Normal gait present Extrem: General: normal to inspection, full ROM, capillary refill normal and normal gait Psych: Appearance: grossly normal and well kempt Mental Status: mental status grossly normal Speech and movement: Normal speech and movement present and Clear speech present Affect: normal affect Attitude: cooperative Course Course Level of Care: Express Care Visit Vital Signs Vital signs: Vital Signs Temperature 96.2 F L 11/22/25 08:34 Pulse Rate 88 11/22/25 08:34 Respiratory Rate 16 11/22/25 08:34 Blood Pressure 117/47 L 11/22/25 08:34 Pulse Oximetry 100 11/22/25 08:34 Temperature 96.2 F L 11/22/25 08:34 Pulse Rate 88 11/22/25 08:34 Respiratory Rate 16 11/22/25 08:34 Blood Pressure 117/47 L 11/22/25 08:34 Pulse Oximetry 100 11/22/25 08:34 reviewed MDM MDM Narrative Medical decision making narrative: Patient sitting in exam room. Patient nontoxic, vitals stable. Patient states that it feels like her lymph nodes are swollen. Patient is morbidly obese. Acute findings noted on exam patient is appropriate for outpatient treatment with close follow-up Discharge instructions reviewed with patient, as well as provided in writing per nursing staff. The instructions also include specific and strict return/GO TO THE ER as well as f/u information. All questions have been answered, and the patient deny any further questions with discharge and discharge plan. Some parts of this dictation were generated by voice recognition software and may contain typographical and/or grammatical inaccuracies. Differential Diagnosis Differential Diagnosis: Differential diagnostic considerations for upper respiratory infection include upper respiratory infection, croup, otitis media, sinusitis, viral infection, bronchitis, influenza, pharyngitis, strep, uvulitis.? Lab Data MDM Lab Attestation statement: I personally reviewed the patient's lab results. Labs: Lab Results 11/22/25 Range/Units 08:56 POC Grp A Strep Screen Negative (Negative) Reviewed Discharge Plan Discharge Clinical Impression: Viral infection, Swollen lymph nodes Patient Disposition: Home Condition: Stable Instructions: Viral Syndrome (ED) Additional Instructions: Your rapid strep swab was negative today at [facility]. A throat culture will be sent to the laboratory for further testing. If the test is positive, you will receive a phone call within 48 hours and an appropriate antibiotic will be initiated at that time. Your symptoms are likely due to a viral illness, which is not treated with antibiotics. Typically viral infections last 7-10 days, can linger for couple of weeks. It is very important to treat your symptoms. Drink plenty of water, Gatorade, Pedialyte, ice pops or Jell-O. -Alternate Tylenol and Motrin per package directions for fever or pain. You can alternate every 4 hours -Antihistamine medication such as Zyrtec/Claritin/Lucina during the day can help improve symptoms. -doing daily nasal irrigations can help relieve pressure your sinuses. Things like a Neti pot -Use Flonase twice a day for 5 days then daily to help reduce the inflammation and dry up your sinuses. -You can also use Mucinex. Be sure to drink plenty of water with this medication at least 8 ounces with every dose and it is important to drink 8 to 10 glasses of water per day. Water is a natural decongestant -Eat and drink things that are easy to swallow, like tea or soup, or popsicles. -Oral rinses such as: Salt water gargles and/or may use topical anesthetic (eg. Chloraseptic spray) or lozenges to relieve dryness or throat pain). -Frequent hand washing or hand literary agent is one of the best ways to prevent spread of infection. -Using a vaporizer or humidifier at night will also help thin secretions and help with coughing up phlegm. -Follow up with primary care provider in 7-10 days if condition is not improving - For new or worsening symptoms go directly to the nearest ER Patient Language: Emirati Prescriptions: No Action No Home Medications Follow-up/Referrals: UNKNOWN,DOCTOR [Primary Care Provider] Stand Alone Forms: Work/School Release IP Time of Disposition: 09:12
[2025-11-22 09:13] LABS: EDSTREPNEGPOS1 Negative (Negative)
== END 2025-11-22 09:22 | disposition home or self-care (01) ==
PROVIDERS: Emergency Provider Nurse Practitioner
DX: B34.9 Viral infection, unspecified (principal); R59.9 Enlarged lymph nodes, unspecified
CPT/HCPCS: 87081; 87880; 99213; G0463